=== PATIENT | female | born 1985 | race Caucasian/White ===

== ENCOUNTER 2016-05-24 17:11 | Emergency (ER) | payer OTHER ==
[2016-05-24 17:25] VITALS: BP 148/99; PULSE 92; TEMP 98; BMI 31.3
--- NOTE | 2016-05-24 17:32 | PDOC ---
Suture Removal/Wound Check HPI - History of Present Illness Chief Complaint: Suture/Staple Removal(Here) Stated Complaint: STITCHES REMOVAL Time Seen by Provider: 05/24/16 17:30 History Source: Yes: Patient Exam Limitations: Yes: No Limitations Treated at: [facility] Date of Last ED visit: 04/30/16 Past History - Past Medical History Allergies/Adverse Reactions: Allergies No Known Allergies Allergy (Verified 05/24/16 17:25) Home Medications: Ambulatory Orders Gabapentin 600 mg PO TID 04/23/14 Pregabalin [Lyrica -] 100 mg PO BID 04/23/14 Cyclobenzaprine HCl [Flexeril -] 10 mg PO HS 11/26/15 Methocarbamol [Robaxin -] 500 mg PO BID 11/26/15 Oxycodone HCl/Acetaminophen [Percocet 10-325 mg Tablet] 1 each PO BID PRN Ibuprofen [Motrin -] 600 mg PO TID PRN #28 tablet 04/30/16 Oxycodone HCl/Acetaminophen [Percocet 5-325 mg Tablet] 1 tab PO Q6H #4 tablet MDD 4 04/30/16 Surgical History: Yes: , Other - Reproductive History LMP: 05/20/12 - Immunization History Immunizations Up to Date: Yes Tetanus Status: Less than 5 years - Social History Smoking History: No Smoking Status: Current every day smoker Number of Ciarettes Per Day: 10 Alcohol Use: none Drug Use: none Medical Decision Making - Medical Decision Making A/P: 30 y/o female seen here on 04/30 for head laceration, here for suture removal, 24 days after sutures placed into scalp. Pt denies fever, discharge from wound. 4 sutures removed from top posterior scalp. Laceration well healed without any dehiscence. Pt given suture removal instructions. *DC/Admit/Observation/Transfer Diagnosis at time of Disposition: Visit for suture removal - Discharge Dispostion Disposition: HOME Condition at time of disposition: Good - Patient Instructions Printed Discharge Instructions: DI for Suture Removal
== END 2016-05-24 17:44 | disposition home or self-care (01) ==
LOC: JER 17:11 → JERFT 17:11
DX: Z48.02 Encounter for removal of sutures (principal)
CPT/HCPCS: 99281-25

== ENCOUNTER 2016-10-04 22:36 | Emergency (ER) | payer OTHER ==
[2016-10-04 22:42] VITALS: BP 150/89; PULSE 93; TEMP 98.3; BMI 34.4
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
[2016-10-04 23:58] LABS: BASOPHIL 0.6 % (0-2.0); MCH 31.8 pg (25.7-33.7); MCHC 34.1 g/dl (32.0-36.0); MEAN CELL VOLUME 93.4 fl (80-96); MEAN PLT VOLUME 9.7 fl (7.5-11.1); NEUTROPHILS 61.3 % (42.8-82.8); PLATELET COUNT 221 K/MM3 (134-434); RDW 12.1 % (11.6-15.6)
[2016-10-04 23:59] LABS: URINE APPEARANCE CLEAR; URINE BILIRUBIN NEGATIVE (NEGATIVE); URINE COLOR YELLOW; URINE GLUCOSE (UA) NEGATIVE (NEGATIVE); URINE KETONE NEGATIVE (NEGATIVE); URINE LEUK ESTERASE NEGATIVE (NEGATIVE); URINE NITRITE NEGATIVE (NEGATIVE); URINE PROTEIN NEGATIVE (NEGATIVE); URINE UROBILINOGEN NEGATIVE E.U./dl (0.2-1.0)
[2016-10-05 00:05] LABS: URINE BLOOD 3+ (NEGATIVE)
[2016-10-05 00:31] LABS: ALBUMIN 3.5 g/dl (3.4-5.0); ANION GAP 11 (8-16); BILIRUBIN,TOTAL 0.3 mg/dL (0.2-1.0); CALCIUM 8.5 mg/dL (8.5-10.1); CO2 24 mmol/L (21-32); CREATININE 0.7 mg/dL (0.55-1.02); GLUCOSE,RANDOM 95 mg/dL (74-106); SGOT/AST 25 U/L (15-37); SGPT/ALT 33 U/L (12-78); TOT PROT 7.1 g/dl (6.4-8.2)
[2016-10-05 00:32] LABS: ALK PHOS 66 U/L (45-117)
[2016-10-05 00:44] LABS: URINE BACTERIA RARE /hpf (NONE SEEN); URINE MUCUS RARE; URINE RBC 1 /hpf (0-3); URINE WBC 1 /hpf (3-5)
--- NOTE | 2016-10-05 01:15 | PDOC ---
*Physical Exam - Vital Signs Last Vital Signs Temp Pulse Resp BP Pulse Ox 98.3 F 93 H 18 150/89 97 10/04/16 22:37 10/04/16 22:37 10/04/16 22:37 10/04/16 22:37 10/04/16 22:37 ED Treatment Course - LABORATORY CBC & Chemistry Diagram: 10/04/16 23:41 10/04/16 23:41 - ADDITIONAL ORDERS Additional order review: Laboratory Results 10/04/16 10/04/16 10/04/16 23:41 23:41 23:41 Sodium 141 Potassium 4.0 Chloride 106 Carbon Dioxide 24 Anion Gap 11 BUN 15 D Creatinine 0.7 D Creat Clearance w eGFR > 60 Random Glucose 95 D Calcium 8.5 Total Bilirubin 0.3 D AST 25 D ALT 33 Alkaline Phosphatase 66 D Total Protein 7.1 Albumin 3.5 D Beta HCG, Quant < 1.0 Urine Color Yellow Urine Appearance Clear Urine pH 6.0 Urine Protein Negative Urine Glucose (UA) Negative Urine Ketones Negative Urine Blood 3+ H Urine Nitrite Negative Urine Bilirubin Negative Urine Urobilinogen Negative Ur Leukocyte Esterase Negative Urine RBC 1 Urine WBC 1 Ur Epithelial Cells Rare Urine Bacteria Rare Urine Mucus Rare 10/04/16 23:41 RBC 4.03 MCV 93.4 MCHC 34.1 RDW 12.1 MPV 9.7 Neutrophils % 61.3 D Lymphocytes % 28.2 D Monocytes % 6.9 D Eosinophils % 3.0 D Basophils % 0.6 Medical Decision Making - Medical Decision Making 10/05/16 01:14 Pt seen primarily by ELLYN Smith Briefly, she is a 31 yo F presenting to the ER with a concern about due to suprapubic pain Labs: Laboratory Tests 10/04/16 10/04/16 10/04/16 23:41 23:41 23:41 WBC 6.0 D Hgb 12.8 D Hct 37.6 D Plt Count 221 D BUN 15 D Creatinine 0.7 D Beta HCG, Quant Urine Blood 3+ H Urine Nitrite Negative Ur Leukocyte Esterase Negative 10/04/16 23:41 WBC Hgb Hct Plt Count BUN Creatinine Beta HCG, Quant < 1.0 Urine Blood Urine Nitrite Ur Leukocyte Esterase U/S pending I agree with her plan to discharge to home if US negative 10/05/16 01:15 *DC/Admit/Observation/Transfer Diagnosis at time of Disposition: UTI (urinary tract infection), Vaginal spotting - Discharge Dispostion Disposition: HOME Condition at time of disposition: Stable - Prescriptions Prescriptions: Nitrofurantoin Monohyd/M-Cryst [Macrobid -] 100 mg PO BID #14 capsule - Referrals Referrals: Dominic Zuniga MD [Staff Physician] - - Patient Instructions Printed Discharge Instructions: DI for Urinary Tract Infection (UTI) Additional Instructions: As per our conversation, you'll urine analysis does not show a urinary tract infection but your symptoms exhibited someone who is going through a urinary tract infection. You have been started on antibiotics for urinary tract infection. 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
[2016-10-05] MEDS ORDERED: NITROFURANTOIN MACROCRYSTAL 50 MG CAPSULE (FP) PO SCH (02:30)
[2016-10-05] MEDS ORDERED: NITROFURANTOIN MACROCRYSTAL 50 MG CAPSULE (FP) ONE (02:31)
== END 2016-10-05 03:00 | disposition home or self-care (01) ==
LOC: JER 22:36
DX: N30.00 Acute cystitis without hematuria (principal); N93.8 Other specified abnormal uterine and vaginal bleeding; J45.909 Unspecified asthma, uncomplicated; F41.9 Anxiety disorder, unspecified; D57.1 Sickle-cell disease without crisis
CPT/HCPCS: 36415; 76830-TC; 80053; 81003; 81015; 84702; 85025; 87086; 99281-25

== ENCOUNTER 2018-01-01 18:20 | Emergency (ER) | payer OTHER ==
[2018-01-01 18:37] VITALS: BP 129/77; PULSE 89; TEMP 98.5; BMI 39.1
[2018-01-01] MEDS ORDERED: KETOROLAC TROMETHAMINE 60 MG/2 ML VIAL IM ONE (19:11)
[2018-01-01] MEDS ORDERED: KETOROLAC TROMETHAMINE 60 MG/2 ML VIAL ONE (19:14)
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
== END 2018-01-01 21:42 | disposition home or self-care (01) ==
LOC: JERFT 18:20
PROC: 2W28X4Z Dressing of Right Upper Extremity using Bandage (ICD-10-PCS; principal; 2018-01-01)
PROC: 3E0233Z Introduction of Anti-inflammatory into Muscle, Percutaneous Approach (ICD-10-PCS; 2018-01-01)
DX: S63.621A Sprain of interphalangeal joint of right thumb, initial encounter (principal); W50.1XXA Accidental kick by another person, initial encounter; Y93.89 Activity, other specified; Y92.038 Other place in apartment as the place of occurrence of the external cause; Y99.8 Other external cause status; T23.271A Burn of second degree of right wrist, initial encounter; T31.0 Burns involving less than 10% of body surface; T79.8XXA Other early complications of trauma, initial encounter; X11.8XXA Contact with other hot tap-water, initial encounter
CPT/HCPCS: 16020; 73110-TC-RT-FY; 73130-TC-RT-FY; 96372; 99281-25

== ENCOUNTER 2018-04-20 17:36 | Emergency (ER) | payer OTHER ==
[2018-04-20 17:45] VITALS: BP 126/74; PULSE 87; TEMP 97.8; BMI 39.1
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
[2018-04-20] MEDS ORDERED: KETOROLAC TROMETHAMINE 60 MG/2 ML VIAL IM ONE (18:31)
[2018-04-20] MEDS ORDERED: KETOROLAC TROMETHAMINE 60 MG/2 ML VIAL ONE (18:32)
== END 2018-04-20 18:46 | disposition home or self-care (01) ==
LOC: JERFT 17:36
PROC: 3E0233Z Introduction of Anti-inflammatory into Muscle, Percutaneous Approach (ICD-10-PCS; principal; 2018-04-20)
DX: S13.4XXA Sprain of ligaments of cervical spine, initial encounter (principal); V43.52XA Car driver injured in collision with other type car in traffic accident, initial encounter; Y93.89 Activity, other specified; Y92.410 Unspecified street and highway as the place of occurrence of the external cause
CPT/HCPCS: 84703; 99281-25

== ENCOUNTER 2018-04-30 14:38 | Emergency (ER) | payer OTHER ==
[2018-04-30 14:50] VITALS: BP 123/79; PULSE 97; TEMP 98.3; BMI 37.5
--- NOTE | 2018-04-30 14:53 | PDOC ---
Rapid Medical Evaluation Time Seen by Provider: 04/30/18 14:49 Medical Evaluation: Allergies Allergy/AdvReac Type Severity Reaction Status Date / Time No Known Allergies Allergy Verified 01/01/18 18:33 04/30/18 14:49 The patient presents with a chief complaint of: rt sided neck lump x 1 week, no drainage , temp 101.2, dizzy, headache I have performed a brief in-person evaluation of this patient; noted erthematous rt cervical small abscess with nondraining white center, surrounding skin intact Pertinent physical exam findings: ambulatory, in no respiratory distress, VSS I have ordered the following: none The patient will proceed to the ED for further evaluation. Discharge Disposition - Diagnosis Abscess - Referrals - Patient Instructions - Post Discharge Activity
[2018-04-30] MEDS ORDERED: IBUPROFEN 400 MG TABLET (FP) PO ONE ×2 (16:09→16:10)
--- NOTE | 2018-04-30 17:15 | PDOC ---
History of Present Illness - General Chief Complaint: Pain, Acute Stated Complaint: HEADACHE Time Seen by Provider: 04/30/18 14:49 History Source: Patient Exam Limitations: No Limitations Past History - Past Medical History Allergies/Adverse Reactions: Allergies Allergy/AdvReac Type Severity Reaction Status Date / Time No Known Allergies Allergy Verified 04/30/18 14:51 Home Medications: Ambulatory Orders Cyclobenzaprine HCl [Flexeril -] 10 mg PO TID 04/30/18 Meloxicam [Mobic] 7.5 mg PO ASDIR 04/30/18 Pregabalin [Lyrica -] 100 mg PO TID 04/30/18 Anemia: No Asthma: Yes Cancer: No Cardiac Disorders: No COPD: No Diabetes: No HTN: No Psychiatric Problems: Yes (ANXIETY, PANIC ATTACKS.) Seizures: No Thyroid Disease: No - Surgical History Abdominal Surgery: Yes Cholecystectomy: No Lung Surgery: No - Immunization History Immunization Up to Date: Yes - Suicide/Smoking/Psychosocial Hx Smoking Status: No Smoking History: Never smoked Have you smoked in the past 12 months: No Number of Cigarettes Smoked Daily: 10 If you are a former smoker, when did you quit?: 1st Trimester Information on smoking cessation initiated: No 'Breaking Loose' booklet given: 04/29/16 Hx Alcohol Use: No Drug/Substance Use Hx: No Substance Use Type: None Hx Substance Use Treatment: No *Physical Exam - Vital Signs Last Vital Signs Temp Pulse Resp BP Pulse Ox 98.3 F 97 H 20 123/79 99 04/30/18 14:47 04/30/18 14:47 04/30/18 14:47 04/30/18 14:47 04/30/18 14:47 - Physical Exam General Appearance: No: Apparent Distress HEENT: positive: Normal ENT Inspection Neck: positive: Other (around 3 x 3 cm area of induration along R lateral neck with center of pustule noted, slight fluctuance noted to center, no draining pus , mild redness around site) Moderate Sedation - Procedure Monitoring Vital Signs: Procedure Monitoring Vital Signs Temperature 98.3 F 04/30/18 14:47 Pulse Rate 97 H 04/30/18 14:47 Respiratory Rate 20 04/30/18 14:47 Blood Pressure 123/79 04/30/18 14:47 O2 Sat by Pulse Oximetry (%) 99 04/30/18 14:47 Procedures - Incision and Drainage I&D Site: Right: Other (R lateral surface of neck) Betadine cleansed: Yes Anesthesia: 1% Lidocaine Blade Size: 15 Attempts: 1 Iodinated Packin/4 in ED Treatment Course - Medications Given in the ED: ED Medications Discontinued Medications Generic Name Dose Route Start Last Admin Trade Name Brenda PRN Reason Stop Dose Admin Ibuprofen 800 mg 04/30/18 16:09 04/30/18 16:11 Motrin - PO 04/30/18 16:10 800 mg ONCE ONE Administration Medical Decision Making - Medical Decision Making 32 y/o F hx of lupus, sickle cell trait presents with lump along R side of neck x 1 week, worsening last night. Had fever last night, but unable to recall exact number. Took Motrin last night. Denies any possible bites to site. Bedside ultrasound showed small pocket of fluid (superficial) Had small amount of pus come out on injection of lidocaine I&D done with mostly bloody discharge Site was packed Will have patient return in 2 days for wound recheck 04/30/18 17:12 *DC/Admit/Observation/Transfer Diagnosis at time of Disposition: Abscess - Discharge Dispostion Disposition: HOME Condition at time of disposition: Good Decision to Admit order: No - Referrals - Patient Instructions Printed Discharge Instructions: DI for Skin Abscess Additional Instructions: Thank you for choosing [facility]. It was a pleasure taking care of you. You may take Tylenol 650 mg or Motrin 600 mg every 4 hours by mouth as needed for mild to moderate pain. Take Motrin with food. Do not take more than 4000 mg of Tylenol in 1 day. Apply warm compresses to allow any further drainage Return to ED in 2 days for wound recheck Return to the Emergency Department if your symptoms worsen or persist or have other concerning symptoms. - Post Discharge Activity
== END 2018-04-30 17:27 | disposition home or self-care (01) ==
LOC: JERFT 14:38
PROC: 0J940ZZ Drainage of Right Neck Subcutaneous Tissue and Fascia, Open Approach (ICD-10-PCS; principal; 2018-04-30)
DX: L02.11 Cutaneous abscess of neck (principal)
CPT/HCPCS: 99281-25

== ENCOUNTER 2018-08-25 13:12 | Inpatient (IN) | payer OTHER ==
--- NOTE | 2018-08-25 13:29 | PDOC ---
History of Present Illness - General Chief Complaint: Chest Pain Stated Complaint: CHEST PAIN Time Seen by Provider: 08/25/18 13:29 - History of Present Illness Initial Comments: 33 year old with PMH of Lupus, "pinched nerve" (assumed radiculopathy), sickle cell trait, anxiety, and asthma presenting with sharp central chest pain that started one hour before presentation to our ED. Denies ever having this chest arceo in the past. describes the pain as sudden onset, sharp and central, which radiates to the left arm and down to her hand. She did have an episode of vomiting when the chest pain first came on. She also admits to some mild sore throat. It has been constant since onset with occasional minor improvement but never complete relief. She does have a mild burning sensation in her throat. Denies SOB, fevers, chills, diarrhea, abdominal pain, headache, syncope, cough, or other symptoms. No PCP because of insurance issues. She has a chronic pain physician who treats her with lyrica. 08/25/18 13:30 Past History - Past Medical History Allergies/Adverse Reactions: Allergies Allergy/AdvReac Type Severity Reaction Status Date / Time No Known Allergies Allergy Verified 08/25/18 13:25 Home Medications: Ambulatory Orders Cyclobenzaprine HCl [Flexeril -] 10 mg PO TID 04/30/18 Meloxicam [Mobic] 7.5 mg PO ASDIR 04/30/18 Pregabalin [Lyrica -] 100 mg PO TID 04/30/18 Anemia: No Asthma: Yes Cancer: No Cardiac Disorders: No COPD: No Diabetes: No HTN: No Psychiatric Problems: Yes (ANXIETY, PANIC ATTACKS.) Seizures: No Thyroid Disease: No Other medical history: SICKLE CELL TRAIT, LUPUS - Surgical History Abdominal Surgery: Yes Cholecystectomy: No Lung Surgery: No - Immunization History Immunization Up to Date: Yes - Suicide/Smoking/Psychosocial Hx Smoking Status: No Smoking History: Current every day smoker Have you smoked in the past 12 months: No Number of Cigarettes Smoked Daily: 10 If you are a former smoker, when did you quit?: 1st Trimester Information on smoking cessation initiated: No 'Breaking Loose' booklet given: 04/29/16 Hx Alcohol Use: No Drug/Substance Use Hx: No Substance Use Type: None Hx Substance Use Treatment: No Review of Systems - Review of Systems Constitutional: No: Chills, Diaphoresis, Fever Respiratory: No: Cough, Shortness of Breath Cardiac (ROS): Yes: Chest Pain. No: Edema, Irregular Heart Rate ABD/GI: Yes: Nausea, Vomiting. No: Diarrhea : No: Dysuria, Discharge Musculoskeletal: No: Back Pain, Joint Pain Integumentary: Yes: Dryness, Erythema, Lesions. No: Bruising, Flushing Neurological: Yes: Paresthesia. No: Headache, Numbness Psychiatric: Yes: Anxiety. No: Depression Hematologic/Lymphatic: No: Anemia, Blood Clots, Easy Bleeding *Physical Exam - Vital Signs Last Vital Signs Temp Pulse Resp BP Pulse Ox 97.4 F L 63 18 147/65 99 08/25/18 13:25 08/25/18 13:25 08/25/18 13:25 08/25/18 13:25 08/25/18 13:25 - Physical Exam General Appearance: Yes: Nourished, Appropriately Dressed. No: Apparent Distress HEENT: positive: EOMI, JULIET, Normal ENT Inspection, Normal Voice Neck: positive: Trachea midline, Normal Thyroid, Supple. negative: Tender, Rigid Respiratory/Chest: positive: Lungs Clear, Normal Breath Sounds. negative: Chest Tender, Respiratory Distress Heart Score/ECG Review - History History: Slightly suspicious - Electrocardiogram EKG: Normal - Age Age: </= 45 - Risk Factors Risk Factors Heart Score: Yes Smoking History, Yes Positive family hx of cardiac disease, Yes Hx Obesity Based on the list above the patient has:: >/=3 risk factors or Hx atherosclerotic disease - Troponin Troponin: </= normal limit - Score Heart Score - Total: 2 ED Treatment Course - LABORATORY CBC & Chemistry Diagram: 08/25/18 14:24 08/25/18 14:24 Medical Decision Making - Medical Decision Making 33 year old female with sudden onset sharp central chest pain with radiation down her left arm to her hand. PE was highest on our differnetial given history of SLE. CTA ruled this ut and bilateral dopplers also ruled out DVT. Very low risk (HS 2) for ACS first troponin negative. Symptoms better after Pepcid, Maalox, and toradol. EKG demonstrating rate 72, AL 208, QRS 88, QTc 431, an normal axis without ST elevations or TWI. Repeat EKG unchanged. However, repeat troponin elevated to 0.[address] [facility] and we discussed the patient with Dr. Dee who recommended holding AC unles patient's chest pain returned. Final provisional diagnosis is most likely NSTEMI but the subtype is currently unspecifiable. 08/25/18 18:03 *DC/Admit/Observation/Transfer Diagnosis at time of Disposition: Troponin level elevated Chest pain Qualifiers: Chest pain type: unspecified Qualified Code(s): R07.9 - Chest pain, unspecified - Discharge Dispostion Disposition: HOME Condition at time of disposition: Stable Decision to Admit order: Yes - Referrals - Patient Instructions - Post Discharge Activity
[2018-08-25] MEDS ORDERED: FAMOTIDINE 20 MG/50 ML IVPB 20 MG/50 ML MG IVPB ONE ×2 (14:03→14:10)
[2018-08-25] MEDS ORDERED: SODIUM CHLORIDE 0.9% 500 ML INFUS.BAG IV ONE (14:03)
[2018-08-25] MEDS ORDERED: ONDANSETRON 4 MG/2 ML VIAL IVPUSH ONE (14:03)
[2018-08-25] MEDS ORDERED: MAG HYDROX/AL HYDROX/SIMETH 30 ML UNIT-DOSE CUP PO ONE (14:03)
[2018-08-25] MEDS ORDERED: ASPIRIN 81 MG CHEWABLE TABLETS PO ONE (14:03)
[2018-08-25] MEDS ORDERED: ASPIRIN 325 MG TABLET ONE (14:09)
[2018-08-25] MEDS ORDERED: ONDANSETRON 4 MG/2 ML VIAL ONE (14:10)
[2018-08-25] MEDS ORDERED: MAG HYDROX/AL HYDROX/SIMETH 30 ML UNIT-DOSE CUP ONE (14:10)
--- NOTE | 2018-08-25 14:28 | EKG ---
Test Reason : Blood Pressure : / mmHG Vent. Rate : 072 BPM Atrial Rate : 072 BPM P-R Int : 208 ms QRS Dur : 088 ms QT Int : 394 ms P-R-T Axes : 054 033 037 degrees QTc Int : 431 ms NORMAL SINUS RHYTHM POSSIBLE LEFT ATRIAL ENLARGEMENT BORDERLINE ECG NO PREVIOUS ECGS AVAILABLE Confirmed by SHARON ROSS, MERT ([id number]) on 08/25/2018 2:28:12 PM Referred By: Confirmed By:MERT HERRERA MD
[2018-08-25 14:34] LABS: BASO % 1.1 % (0-2.0); EOS % 1.6 % (0-4.5); HEMATOCRIT 37.4 % (32.4-45.2); HEMOGLOBIN 13.2 GM/dL (10.7-15.3); LYMPH % 21.6 % (8-40); MCHC 35.3 g/dl (32.0-36.0); MEAN CELL VOLUME 93.6 fl (80-96); MEAN PLT VOLUME 9.9 fl (7.5-11.1); MONO % 7.3 % (3.8-10.2); NEUT % 68.4 % (42.8-82.8); PLATELET COUNT 261 K/MM3 (134-434); RBC 3.99 M/mm3 (3.60-5.2); RDW 12.5 % (11.6-15.6); WHITE BLOOD COUNT 7.6 K/mm3 (4.0-10.0)
[2018-08-25 14:57] LABS: INR 0.92 (0.83-1.09); PROTHROMBIN TIME (PATIENT) 10.9 SEC (9.7-13.0)
[2018-08-25 15:09] LABS: ALBUMIN 3.2 g/dl (3.4-5.0); ALK PHOS 70 U/L (45-117); ANION GAP 5 MMOL/L (8-16); BILIRUBIN,TOTAL 0.4 mg/dL (0.2-1); BLOOD UREA NITROGEN 8 mg/dL (7-18); CHLORIDE 106 mmol/L (98-107); CO2 28 mmol/L (21-32); CREATININE 0.6 mg/dL (0.55-1.3); GLUCOSE,RANDOM 85 mg/dL (74-106); POTASSIUM 4.2 mmol/L (3.5-5.1); SGOT/AST 24 U/L (15-37); SGPT/ALT 34 U/L (13-61); SODIUM 138 mmol/L (136-145)
[2018-08-25 15:12] LABS: EPI CELLS 7.2 /HPF (0-5/HPF); HCG,QUALITATIVE URINE Negative; PH,URINE 5.5 (5.0-8.0); URINE APPEARANCE CLEAR; URINE BACTERIA 194.9 /hpf (NEGATIVE); URINE BILIRUBIN NEGATIVE (NEGATIVE); URINE CASTS 4 /lpf (0-8); URINE COLOR YELLOW; URINE GLUCOSE (UA) NEGATIVE (NEGATIVE); URINE KETONE NEGATIVE (NEGATIVE); URINE LEUK ESTERASE NEGATIVE (NEGATIVE); URINE NITRITE NEGATIVE (NEGATIVE); URINE PROTEIN NEGATIVE (NEGATIVE); URINE RBC 6 /hpf (0-4); URINE UROBILINOGEN 0.2 mg/dL (0.2-1.0); URINE WBC 6 /hpf (0-5)
--- NOTE | 2018-08-25 16:09 | PDOC ---
Documentation entered by Magaly Pascual SCRIBE, acting as scribe for Jack Obrien MD. Jack Obrien MD: This documentation has been prepared by the Samara zimmerman Sammi, SCRIBE, under my direction and personally reviewed by me in its entirety. I confirm that the documentation accurately reflects all work, treatment, procedures, and medical decision making performed by me. Attending Attestation - HPI HPI: 08/25/18 14:45 Patient is a 33 year old female, who presents with 1 hour of sharp, constant chest pain radiating to left upper extremity. Pt notes 1 episode of vomiting and sore throat. Denies SOB, fevers, chills, and other complaints. - Physicial Exam PE: 08/25/18 16:06 Patient is awake and alert, obese, in mild distress Normocephalic and atraumatic PERRLA, EOMI No JVD CTA; + reproducible left anterior chest wall and parasternal chest wall tenderness to palpation RRR No lower extremity edema - Medical Decision Making 08/25/18 16:08 33-year-old female with history of SLE, sickle cell trait presents with atraumatic chest discomfort. Differential diagnoses includes pneumothorax versus PE versus ACS. Patient is well score is noted to be 3 and I will obtain CTA of chest followed by lower extremity Doppler ultrasound to rule out PE/DVT. Heart score is noted to be 2. Will obtain serial cardiac enzymes. If no evidence of PE is noted and serial cardiac enzymes within normal limit, we'll discharge with outpatient follow-up.
[2018-08-25] MEDS ORDERED: KETOROLAC TROMETHAMINE 15 MG/ML VIAL IVPUSH ONE (17:54)
[2018-08-25] MEDS ORDERED: KETOROLAC TROMETHAMINE 15 MG/ML VIAL ONE (18:16)
--- NOTE | 2018-08-25 20:56 | HP ---
Admitting History and Physical - Primary Care Physician PCP: Matthew Land - Admission History of Present Illness: 33 year old with PMH of Lupus, "pinched nerve" (assumed radiculopathy), sickle cell trait, anxiety, and asthma presenting with sharp central chest pain that started one hour before presentation to our ED. Denies ever having this chest arceo in the past. describes the pain as sudden onset, sharp and central, which radiates to the left arm and down to her hand. She did have an episode of vomiting when the chest pain first came on. She also admits to some mild sore throat. It has been constant since onset with occasional minor improvement but never complete relief. She does have a mild burning sensation in her throat. Denies SOB, fevers, chills, diarrhea, abdominal pain, headache, syncope, cough, or other symptoms. No PCP because of insurance issues. She has a chronic pain physician who treats her with lyrica. - Past Medical History Pulmonary: Yes: Asthma ...LMP: 04/14/14 - Smoking History Smoking history: Current every day smoker Have you smoked in the past 12 months: No Aproximately how many cigarettes per day: 10 If you are a former smoker, when did you quit?: 1st Trimester - Alcohol/Substance Use Hx Alcohol Use: No Home Medications - Allergies Allergies/Adverse Reactions: Allergies Allergy/AdvReac Type Severity Reaction Status Date / Time No Known Allergies Allergy Verified 08/25/18 13:25 - Home Medications Home Medications: Ambulatory Orders Cyclobenzaprine HCl [Flexeril -] 10 mg PO TID 04/30/18 Meloxicam [Mobic] 7.5 mg PO ASDIR 04/30/18 Pregabalin [Lyrica -] 100 mg PO TID 04/30/18 Physical Examination Vital Signs: Vital Signs Temperature 97.9 F 08/25/18 20:26 Pulse Rate 74 08/25/18 20:26 Respiratory Rate 20 08/25/18 20:26 Blood Pressure 122/70 08/25/18 20:26 O2 Sat by Pulse Oximetry (%) 99 08/25/18 16:15 Constitutional: Yes: No Distress HENT: Yes: Atraumatic Neck: Yes: Supple Cardiovascular: Yes: Regular Rate and Rhythm Respiratory: Yes: CTA Bilaterally Gastrointestinal: Yes: Normal Bowel Sounds Musculoskeletal: Yes: Other (tender at costochondral junction) Extremities: Yes: WNL Neurological: Yes: Alert, Oriented Labs: CBC, BMP 08/25/18 14:24 08/25/18 14:24 Imaging - Results Cat Scan: Report Reviewed Ultrasound: Report Reviewed Problem List - Problems (1) Chest pain Assessment/Plan: reproducible also as neck issue Code(s): R07.9 - CHEST PAIN, UNSPECIFIED Qualifiers: Chest pain type: unspecified Qualified Code(s): R07.9 - Chest pain, unspecified (2) Troponin level elevated Assessment/Plan: will fu cardiology consult tele monitoring Code(s): R74.8 - ABNORMAL LEVELS OF OTHER SERUM ENZYMES (3) Chronic pain Assessment/Plan: chronic neck pain...supposed to go for mri Code(s): G89.29 - OTHER CHRONIC PAIN Assessment/Plan Laboratory Tests 08/25/18 08/25/18 08/25/18 14:24 14:24 14:24 WBC 7.6 RBC 3.99 Hgb 13.2 Hct 37.4 MCV 93.6 MCH 33.0 MCHC 35.3 RDW 12.5 Plt Count 261 MPV 9.9 Absolute Neuts (auto) 5.2 Neutrophils % 68.4 Lymphocytes % 21.6 D Monocytes % 7.3 Eosinophils % 1.6 Basophils % 1.1 Nucleated RBC % 0 PT with INR 10.90 INR 0.92 Sodium 138 Potassium 4.2 Chloride 106 Carbon Dioxide 28 Anion Gap 5 L BUN 8 Creatinine 0.6 Creat Clearance w eGFR 114.44 Random Glucose 85 Calcium 9.0 Total Bilirubin 0.4 AST 24 ALT 34 Alkaline Phosphatase 70 Creatine Kinase Troponin I 0.03 Total Protein 7.0 Albumin 3.2 L Urine Color Urine Appearance Urine pH Ur Specific [place] Urine Protein Urine Glucose (UA) Urine Ketones Urine Blood Urine Nitrite Urine Bilirubin Urine Urobilinogen Ur Leukocyte Esterase Urine WBC (Auto) Urine RBC (Auto) Urine Casts (Auto) U Epithel Cells (Auto) Urine Bacteria (Auto) Urine HCG, Qual 08/25/18 08/25/18 14:52 18:21 WBC RBC Hgb Hct MCV MCH MCHC RDW Plt Count MPV Absolute Neuts (auto) Neutrophils % Lymphocytes % Monocytes % Eosinophils % Basophils % Nucleated RBC % PT with INR INR Sodium Potassium Chloride Carbon Dioxide Anion Gap BUN Creatinine Creat Clearance w eGFR Random Glucose Calcium Total Bilirubin AST ALT Alkaline Phosphatase Creatine Kinase 116 Troponin I 0.41 H Total Protein Albumin Urine Color Yellow Urine Appearance Clear Urine pH 5.5 Ur Specific [place] 1.013 Urine Protein Negative Urine Glucose (UA) Negative Urine Ketones Negative Urine Blood 2+ H Urine Nitrite Negative Urine Bilirubin Negative Urine Urobilinogen 0.2 Ur Leukocyte Esterase Negative Urine WBC (Auto) 6 Urine RBC (Auto) 6 Urine Casts (Auto) 4 U Epithel Cells (Auto) 7.2 Urine Bacteria (Auto) 194.9 Urine HCG, Qual Negative
[2018-08-25] MEDS: PREGABALIN 100 MG CAPSULE PO SCH (22:11)
[2018-08-25] MEDS ORDERED: oxyCODONE HCL 5 MG TABLET PO PRN (23:00)
[2018-08-25] MEDS ORDERED: diphenhydrAMINE HCL 25 MG CAPSULE (FP) PO PRN (23:00)
[2018-08-25] MEDS ORDERED: ACETAMINOPHEN 325 MG TABLET (FP) PO PRN ×2 (23:00→23:01)
[2018-08-25] MEDS: metoPROLOL SUCCINATE 25 MG TAB.SR.24H (FP) PO SCH (23:09)
[2018-08-25 23:42] VITALS: BMI 40.4
[2018-08-26] MEDS: PREGABALIN 100 MG CAPSULE PO SCH (06:18)
[2018-08-26 06:49] LABS: BASO % 0.4 % (0-2.0); EOS % 2.6 % (0-4.5); HEMATOCRIT 37.2 % (32.4-45.2); HEMOGLOBIN 12.7 GM/dL (10.7-15.3); LYMPH % 35.2 % (8-40); MCH 32.2 pg (25.7-33.7); MCHC 34.1 g/dl (32.0-36.0); MEAN CELL VOLUME 94.3 fl (80-96); MEAN PLT VOLUME 10.3 fl (7.5-11.1); MONO % 8.5 % (3.8-10.2); NEUT % 53.3 % (42.8-82.8); PLATELET COUNT 242 K/MM3 (134-434); RBC 3.94 M/mm3 (3.60-5.2); RDW 12.4 % (11.6-15.6); WHITE BLOOD COUNT 6.2 K/mm3 (4.0-10.0)
[2018-08-26 07:30] LABS: ALBUMIN 2.7 g/dl (3.4-5.0); ALK PHOS 66 U/L (45-117); ANION GAP 5 MMOL/L (8-16); BILIRUBIN,TOTAL 0.2 mg/dL (0.2-1); BLOOD UREA NITROGEN 12 mg/dL (7-18); CALCIUM 8.4 mg/dL (8.5-10.1); CHLORIDE 108 mmol/L (98-107); CO2 25 mmol/L (21-32); CREATININE 0.7 mg/dL (0.55-1.3); GLUCOSE,RANDOM 100 mg/dL (74-106); N-TERMINAL BNP 114.9 pg/ml (5-125); POTASSIUM 3.8 mmol/L (3.5-5.1); SGOT/AST 28 U/L (15-37); SGPT/ALT 34 U/L (13-61); SODIUM 139 mmol/L (136-145)
[2018-08-26 07:56] VITALS: BP 114/65; PULSE 67; TEMP 98
--- NOTE | 2018-08-26 09:04 | CON.CARD ---
Consult Consult Specialty:: Cardiology - History of Present Illness Chief Complaint: Chest pain History of Present Illness: 33 yo F with ho lupus (facial rash and joint pain). was placed on AC during but there is no prior ho thrombus. Developed sudden SSCP radiating to her left arm and face and lasted 45min and has resolved. No recent illness, fever. Has been CP free since admission. No dyspnea, edema, palpitations. now has left shoulder pain which is exacerbated by movement and is not new. ECG at presentation was normal. TP elevated over past several hours. Chest CT negative for dissection or PE. Does not report pericardial fluid. - History Source History Provided By: Patient Limitations to Obtaining History: No Limitations - Past Medical History Pulmonary: Yes: Asthma ...LMP: 04/14/14 Additional Medical History: lupus. 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 - Alcohol/Substance Use Hx Alcohol Use: No - Smoking History Smoking history: Current every day smoker Have you smoked in the past 12 months: No Aproximately how many cigarettes per day: 10 If you are a former smoker, when did you quit?: 1st Trimester Home Medications - Allergies Allergies/Adverse Reactions: Allergies Allergy/AdvReac Type Severity Reaction Status Date / Time No Known Allergies Allergy Verified 08/25/18 13:25 - Home Medications Home Medications: Ambulatory Orders Cyclobenzaprine HCl [Flexeril -] 10 mg PO TID 04/30/18 Meloxicam [Mobic] 7.5 mg PO ASDIR 04/30/18 Pregabalin [Lyrica -] 100 mg PO TID 04/30/18 Percocet 10-325 mg Tablet 10 mg PO PRN 08/25/18 Diphenhydramine HCl [Benadryl -] 25 mg PO PRN 08/26/18 Review of Systems - Review of Systems Constitutional: reports: Lethargy. denies: Chills, Diaphoresis, Fever Eyes: reports: No Symptoms HENT: reports: No Symptoms Neck: reports: No Symptoms Cardiovascular: reports: Chest Pain. denies: Edema, Shortness of Breath Respiratory: reports: No Symptoms Gastrointestinal: reports: No Symptoms Genitourinary: reports: No Symptoms Vital Signs: Vital Signs Temperature 98.0 F 08/26/18 07:54 Pulse Rate 67 08/26/18 07:54 Respiratory Rate 18 08/26/18 07:54 Blood Pressure 114/65 08/26/18 07:54 O2 Sat by Pulse Oximetry (%) 98 08/26/18 07:54 Constitutional: Yes: Well Nourished, No Distress Eyes: Yes: Conjunctiva Clear, EOM Intact HENT: Yes: Atraumatic, Normocephalic Neck: Yes: Supple, Trachea Midline Respiratory: Yes: Regular, CTA Bilaterally Gastrointestinal: Yes: Normal Bowel Sounds, Soft Cardiovascular: Yes: Regular Rate and Rhythm JVD: No Carotid Bruit: No PMI: Non-Displaced Heart Sounds: Yes: S1, S2 Murmur: No: Systolic Murmur, Diastolic Murmur - Other Data Labs, Other Data: CBC, BMP 08/26/18 05:30 08/26/18 05:30 INR, PTT INR 0.92 (0.83-1.09) 08/25/18 14:24 Troponin, BNP 08/25/18 08/25/18 08/25/18 14:24 18:21 21:20 Troponin I 0.03 0.41 H 0.83 H* B-Natriuretic Peptide 08/26/18 05:30 Troponin I 1.05 H* B-Natriuretic Peptide 114.9 Troponin, BNP 08/25/18 08/25/18 08/25/18 14:24 18:21 21:20 Troponin I 0.03 0.41 H 0.83 H* B-Natriuretic Peptide 08/26/18 05:30 Troponin I 1.05 H* B-Natriuretic Peptide 114.[address] t changes Problem List - Problems (1) Chest pain Code(s): R07.9 - CHEST PAIN, UNSPECIFIED Qualifiers: Chest pain type: unspecified Qualified Code(s): R07.9 - Chest pain, unspecified (2) Troponin level elevated Code(s): R74.8 - ABNORMAL LEVELS OF OTHER SERUM ENZYMES Assessment/Plan 33 F Lupus. New onset sudden CP wo ECG changes. Resolved now but with significant TP elevation. Possible NSTEMI vs pericarditis. Check ESR, CRP. Will need to exclude coronary obstruction either cath vs CTA. Echo Transfer to [facility] for further eval. DW primary team.
[2018-08-26] MEDS: metoPROLOL SUCCINATE 25 MG TAB.SR.24H (FP) PO SCH (09:07)
[2018-08-26] MEDS ORDERED: ASPIRIN 81 MG CHEWABLE TABLETS PO SCH (10:00)
--- NOTE | 2018-08-26 12:12 | EKG ---
Test Reason : Blood Pressure : / mmHG Vent. Rate : 063 BPM Atrial Rate : 063 BPM P-R Int : 234 ms QRS Dur : 090 ms QT Int : 412 ms P-R-T Axes : 036 041 040 degrees QTc Int : 421 ms SINUS RHYTHM WITH 1ST DEGREE A-V BLOCK OTHERWISE NORMAL ECG WHEN COMPARED WITH ECG OF 25-AUG-2018 18:36, NO SIGNIFICANT CHANGE WAS FOUND Confirmed by MICHELLE WILL MD ([id number]) on 08/26/2018 12:11:41 PM Referred By: CHRISSIE DELA CRUZ Confirmed By:MICHELLE WILL MD
--- NOTE | 2018-08-26 12:14 | EKG ---
Test Reason : Blood Pressure : / mmHG Vent. Rate : 061 BPM Atrial Rate : 061 BPM P-R Int : 230 ms QRS Dur : 096 ms QT Int : 394 ms P-R-T Axes : 037 045 036 degrees QTc Int : 396 ms SINUS RHYTHM WITH 1ST DEGREE A-V BLOCK OTHERWISE NORMAL ECG WHEN COMPARED WITH ECG OF 25-AUG-2018 13:22, NO SIGNIFICANT CHANGE WAS FOUND Confirmed by MICHELLE WILL MD ([id number]) on 08/26/2018 12:14:09 PM Referred By: Confirmed By:MICHELLE WILL MD
--- NOTE | 2018-08-26 12:55 | ECHO ---
Name: MARIA C MCGUIRE Exam:Adult Echocardiogram Study Date: 08/26/2018 09:32 AM Age: 33 yrs Reason For Study: chest pain Height: 67 in Weight: 248 lb BSA: 2.2 m2 MMode/2D Measurements & Calculations IVSd: 1.0 cm Ao root diam: 3.0 cm LVIDd: 5.1 cm LA dimension: 3.7 cm LVIDs: 2.9 cm LVPWd: 1.1 cm LVPWs: 2.2 cm EDV(Teich): 121.0 ml ESV(Teich): 32.9 ml LVOT diam: 2.0 cm Doppler Measurements & Calculations MV E max isaac: 84.9 cm/sec Ao V2 max: 122.9 cm/sec MV A max isaac: 59.2 cm/sec Ao max P.1 mmHg MV E/A: 1.4 Ao V2 mean: 85.3 cm/sec MV dec time: 0.17 sec Ao mean P.4 mmHg Ao V2 VTI: 28.5 cm CONRADO(I,D): 2.0 cm2 CONRADO(V,D): 1.8 cm2 LV V1 max P.2 mmHg SV(LVOT): 56.7 ml LV V1 mean P.2 mmHg LV V1 max: 73.5 cm/sec LV V1 mean: 51.7 cm/sec LV V1 VTI: 18.4 cm TR max isaac: 230.2 cm/sec PA V2 max: 112.7 cm/sec TR max P.2 mmHg PA max P.1 mmHg Med Peak E' Isaac: 7.6 cm/sec Med E/e': 11.2 Lat Peak E' Isaac: 11.2 cm/sec Lat E/e': 7.6 Procedure A complete two-dimensional transthoracic echocardiogram was performed (2D, M-mode, Doppler and color flow Doppler). The study was technically difficult with many images being suboptimal in quality. Left Ventricle The left ventricular size, thickness and function are normal. The left ventricular ejection fraction is normal. Ejection Fraction = 55-60%. No regional wall motion abnormalities noted. Right Ventricle The right ventricle is normal in size and function. Atria Normal left and right atrial size and function. Mitral Valve There is no mitral regurgitation noted. Tricuspid Valve There is trace tricuspid regurgitation. There was insufficient TR detected to calculate RV systolic p ressure. Aortic Valve No hemodynamically significant valvular aortic stenosis. No aortic regurgitation is present. Pulmonic Valve There is no pulmonic valvular regurgitation. Great Vessels The aortic root is normal size. Pericardium/Pleura There is no pericardial effusion. Interpretation Summary The study was technically difficult with many images being suboptimal in quality. The left ventricular size, thickness and function are normal The right ventricle is normal in size and function. There is trace tricuspid regurgitation. MD Ulises Rutledge 08/26/2018 12:54 PM
--- NOTE | 2018-08-26 18:26 | DS ---
Physical Examination Vital Signs: Vital Signs Temperature 98.0 F 08/26/18 07:54 Pulse Rate 67 08/26/18 07:54 Respiratory Rate 18 08/26/18 07:54 Blood Pressure 114/65 08/26/18 07:54 O2 Sat by Pulse Oximetry (%) 98 08/26/18 07:54 Constitutional: Yes: No Distress HENT: Yes: Atraumatic Neck: Yes: Supple Cardiovascular: Yes: Regular Rate and Rhythm Respiratory: Yes: CTA Bilaterally Gastrointestinal: Yes: Normal Bowel Sounds Extremities: Yes: WNL Edema: No Peripheral Pulses WNL: Yes Neurological: Yes: Alert, Oriented Labs: CBC, BMP 08/26/18 05:30 08/26/18 05:30 Discharge Summary Reason For Visit: ELEVATED TROPONIN LEVEL,CHEST PAIN,RULE OUT ACUTE Condition: Stable - Instructions Disposition: TRANSFER ACUTE CARE/OTHER HOSP - Home Medications Comprehensive Discharge Medication List: Ambulatory Orders Cyclobenzaprine HCl [Flexeril -] 10 mg PO TID 04/30/18 Meloxicam [Mobic] 7.5 mg PO ASDIR 04/30/18 Pregabalin [Lyrica -] 100 mg PO TID 04/30/18 Percocet 10-325 mg Tablet 10 mg PO PRN 08/25/18 Diphenhydramine HCl [Benadryl -] 25 mg PO PRN 08/26/18 transfer to tertiary care for possible cath d/w cardiology
== END 2018-08-26 10:57 | disposition short-term general hospital (02) | DRG 190 ==
LOC: JER 13:12 → INTOOBSV 19:23 → JERBED 19:23 → J4W 21:49 → OBSVTOIN 08-26 08:52
PROVIDERS: ADMIT Internal Medicine; ATTEND Internal Medicine
DX: I21.4 Non-ST elevation (NSTEMI) myocardial infarction (principal); I31.9 Disease of pericardium, unspecified; M32.9 Systemic lupus erythematosus, unspecified; Z68.41 Body mass index [BMI] 40.0-44.9, adult; E66.9 Obesity, unspecified; J45.909 Unspecified asthma, uncomplicated; F17.210 Nicotine dependence, cigarettes, uncomplicated; D57.3 Sickle-cell trait; F41.9 Anxiety disorder, unspecified; Z82.49 Family history of ischemic heart disease and other diseases of the circulatory system
CPT/HCPCS: 36415; 71275-TC; 80053; 81003; 82550; 83880; 84484; 84703; 85025; 85610; 85651; 86140; 93005; 93010; 93306-TC; 93970-TC; 99284-25; G0378

== ENCOUNTER 2018-12-03 15:20 | Emergency (ER) | payer OTHER ==
[2018-12-03 15:28] VITALS: TEMP 97.5; BMI 38.5
--- NOTE | 2018-12-03 15:33 | PDOC ---
Rapid Medical Evaluation Chief Complaint: Pain, Acute Time Seen by Provider: 12/03/18 15:29 Medical Evaluation: Allergies Allergy/AdvReac Type Severity Reaction Status Date / Time No Known Allergies Allergy Verified 12/03/18 15:28 Vital Signs Temp Pulse Resp BP Pulse Ox 97.5 F L 89 18 139/89 97 12/03/18 15:22 12/03/18 15:22 12/03/18 15:22 12/03/18 15:22 12/03/18 15:22 12/03/18 15:29 I have performed a brief in-person evaluation of this patient. The patient presents with a chief complaint of: R wrist pain, R flank pain w/ blood in urine. It feels like a lupus flare, but she has never had flank pain with her flares. H/o lupus. Denies fall. Pertinent physical exam findings: Pt in mild distress from pain. I have ordered the following: CBC, CMP, Esr, crp, UCG, UA, Ucx The patient will proceed to the ED for further evaluation. 12/03/18 15:32 Discharge Disposition - Diagnosis Hematuria Qualifiers: Hematuria type: unspecified type Qualified Code(s): R31.9 - Hematuria, unspecified - Referrals - Patient Instructions - Post Discharge Activity
[2018-12-03] MEDS ORDERED: SODIUM CHLORIDE 1,000 ML IV STA (16:42)
[2018-12-03] MEDS ORDERED: KETOROLAC TROMETHAMINE 30 MG/1 ML VIAL IVPUSH ONE (16:43)
[2018-12-03] MEDS ORDERED: KETOROLAC TROMETHAMINE 30 MG/1 ML VIAL ONE (17:36)
--- NOTE | 2018-12-03 17:40 | PDOC ---
*Physical Exam - Vital Signs Last Vital Signs Temp Pulse Resp BP Pulse Ox 97.5 F L 89 18 139/89 97 12/03/18 15:22 12/03/18 15:22 12/03/18 15:22 12/03/18 15:22 12/03/18 15:22 ED Treatment Course - LABORATORY CBC & Chemistry Diagram: 12/03/18 17:15 12/03/18 17:15 Medical Decision Making - Medical Decision Making 12/03/18 17:40 Case discussed with ELLYN Leal. Plan as per ELLYN. *DC/Admit/Observation/Transfer Diagnosis at time of Disposition: Hematuria Qualifiers: Hematuria type: unspecified type Qualified Code(s): R31.9 - Hematuria, unspecified - Referrals - Patient Instructions - Post Discharge Activity
[2018-12-03 17:46] LABS: BASO % 0.9 % (0-2.0); EOS % 3.5 % (0-4.5); HEMATOCRIT 37.7 % (32.4-45.2); HEMOGLOBIN 13.3 GM/dL (10.7-15.3); LYMPH % 26.4 % (8-40); MCH 32.1 pg (25.7-33.7); MCHC 35.2 g/dl (32.0-36.0); MEAN CELL VOLUME 91.3 fl (80-96); MEAN PLT VOLUME 10.4 fl (7.5-11.1); MONO % 7.2 % (3.8-10.2); PLATELET COUNT 250 K/MM3 (134-434); RBC 4.13 M/mm3 (3.60-5.2); WHITE BLOOD COUNT 5.8 K/mm3 (4.0-10.0)
--- NOTE | 2018-12-03 18:15 | PDOC ---
History of Present Illness - General Chief Complaint: Pain, Acute Stated Complaint: BACK PAIN Time Seen by Provider: 12/03/18 15:29 History Source: Patient Exam Limitations: No Limitations Past History - Past Medical History Allergies/Adverse Reactions: Allergies Allergy/AdvReac Type Severity Reaction Status Date / Time No Known Allergies Allergy Verified 12/03/18 15:28 Home Medications: Ambulatory Orders Cyclobenzaprine HCl [Flexeril -] 10 mg PO TID 04/30/18 Meloxicam [Mobic] 7.5 mg PO ASDIR 04/30/18 Pregabalin [Lyrica -] 100 mg PO TID 04/30/18 Percocet 10-325 mg Tablet 10 mg PO PRN PRN 08/25/18 Diphenhydramine HCl [Benadryl -] 25 mg PO PRN PRN 08/26/18 Cephalexin [Keflex] 500 mg PO BID #14 capsule 12/03/18 Anemia: Yes (SICKLE CELL TRAIT) Asthma: Yes Cancer: No Cardiac Disorders: No COPD: No Diabetes: No HTN: No Psychiatric Problems: Yes (ANXIETY, PANIC ATTACKS.) Seizures: No Thyroid Disease: No Other medical history: LUPUS - Surgical History Abdominal Surgery: Yes Cholecystectomy: No Lung Surgery: No - Immunization History Immunization Up to Date: Yes - Suicide/Smoking/Psychosocial Hx Smoking Status: No Smoking History: Current every day smoker Have you smoked in the past 12 months: No Number of Cigarettes Smoked Daily: 10 If you are a former smoker, when did you quit?: 1st Trimester Information on smoking cessation initiated: No 'Breaking Loose' booklet given: 08/25/18 Hx Alcohol Use: Yes (OCCASIONALLY) Drug/Substance Use Hx: No Substance Use Type: None Hx Substance Use Treatment: No *Physical Exam - Vital Signs Last Vital Signs Temp Pulse Resp BP Pulse Ox 97.5 F L 89 18 139/89 97 12/03/18 15:22 12/03/18 15:22 12/03/18 15:22 12/03/18 15:22 12/03/18 15:22 - Physical Exam General Appearance: No: Apparent Distress Respiratory/Chest: positive: Lungs Clear, Normal Breath Sounds. negative: Respiratory Distress Cardiovascular: positive: Regular Rhythm, Regular Rate, S1, S2. negative: Murmur Gastrointestinal/Abdominal: positive: Normal Bowel Sounds, Soft. negative: Tender, Distended, Guarding, Rebound Musculoskeletal: negative: CVA Tenderness Extremity: positive: Other (+mild pain with movement of R wrist, no swelling or deformity of R wrist noted, no erythema, no skin discoloration) Integumentary: positive: Normal Color. negative: Swelling, Ecchymosis, Bruising Neurologic: positive: Alert, Normal Mood/Affect ED Treatment Course - LABORATORY CBC & Chemistry Diagram: 12/03/18 17:15 12/03/18 17:15 - ADDITIONAL ORDERS Additional order review: Laboratory Results 12/03/18 17:15 Urine HCG, Qual Negative 12/03/18 17:15 RBC 4.13 MCV 91.3 MCHC 35.2 RDW 13.0 MPV 10.4 Neutrophils % 62.0 Lymphocytes % 26.4 D Monocytes % 7.2 Eosinophils % 3.5 Basophils % 0.9 - Medications Given in the ED: ED Medications Discontinued Medications Generic Name Dose Route Start Last Admin Trade Name Freq PRN Reason Stop Dose Admin Sodium Chloride 1,000 mls @ 1,000 mls/hr 12/03/18 16:42 12/03/18 17:45 Normal Saline - IV 12/03/18 17:41 1,000 mls/hr ASDIR STA Administration Ketorolac Tromethamine 30 mg 12/03/18 16:43 12/03/18 17:45 Toradol Injection - IVPUSH 12/03/18 16:44 30 mg ONCE ONE Administration Medical Decision Making - Medical Decision Making 33 y/o F hx of SLE, sickle cell trait, ?NSTEMI 08/2018 (states had cardiac cath which was normal) presents with R lower back pain radiating to lower abdomen x 2 days along with R wrist pain. Unsure if this is Lupus flare-up but states her flare-up does not usually present like this. Denies recent trauma. Also states noticed some blood in urine today. ?fever yesterday, but uncertain as did not check temperature. Denies URI sxs, sob, cp, n/v/d, dysuria, increased frequency/ urgency, unusual vaginal discharge. Denies having this type of pain before. Consider pyelo, UTI, kidney stones, ?lupus flare-up Plan: Labs, R wrist xray, Toradol, IVF, reassess 12/03/18 18:12 Urine positive for infection; also appears a bit contaminated given epithelial cells, but nitrite positive Blood in urine noted - patient states her menstrual cycle just started R wrist xray unremarkable Patient with improved pain Patient states she has carpal tunnel in R wrist and feels this could be related to carpal tunnel - R wrist atilio-wrapped for support; patient has ortho doctor for f/u re: her carpal tunnel 12/03/18 20:25 *DC/Admit/Observation/Transfer Diagnosis at time of Disposition: Right wrist pain UTI (urinary tract infection) Qualifiers: Urinary tract infection type: acute cystitis Hematuria presence: without hematuria Qualified Code(s): N30.00 - Acute cystitis without hematuria - Discharge Dispostion Disposition: HOME Condition at time of disposition: Stable Decision to Admit order: No - Prescriptions Prescriptions: Cephalexin [Keflex] 500 mg PO BID #14 capsule - Referrals - Patient Instructions Printed Discharge Instructions: DI for Carpal Tunnel Syndrome, DI for Acute Cystitis Additional Instructions: Thank you for choosing [facility]. It was a pleasure taking care of you. You were started on antibiotics for urine infection Drink at least 2-3L of water daily Please follow-up with your orthopedic doctor for your carpal tunnel Follow-up with your regular doctor as well Return to the Emergency Department if your symptoms worsen or persist, you have fever, severe abdominal pain, vomiting, flank pain or other concerning symptoms. - Post Discharge Activity
[2018-12-03 18:17] LABS: ALBUMIN 3.2 g/dl (3.4-5.0); BILIRUBIN,TOTAL 0.4 mg/dL (0.2-1); BLOOD UREA NITROGEN 7.2 mg/dL (7-18); CALCIUM 8.7 mg/dL (8.5-10.1); CREATININE 0.7 mg/dL (0.55-1.3); POTASSIUM 4.3 mmol/L (3.5-5.1); TOT PROT 6.9 g/dl (6.4-8.2)
[2018-12-03 18:45] LABS: EPI CELLS >36 /HPF (0-5/HPF); HYALINE CASTS 55 /lpf (0-8); URINE APPEARANCE TURBID; URINE BACTERIA 24.6 /hpf (NEGATIVE); URINE BILIRUBIN 1+ (NEGATIVE); URINE COLOR ORANGE; URINE GLUCOSE (UA) NEGATIVE (NEGATIVE); URINE KETONE NEGATIVE (NEGATIVE); URINE LEUK ESTERASE 2+ (NEGATIVE); URINE NITRITE POSITIVE (NEGATIVE); URINE PROTEIN 2+ (NEGATIVE); URINE WBC 99 /hpf (0-5)
[2018-12-03] MEDS ORDERED: ACETAMINOPHEN 1000 MG/100 ML VIAL (NON FORMULARY) IVPB ONE (18:47)
[2018-12-03 19:04] LABS: URINE RBC 1351 /hpf (0-4)
[2018-12-03] MEDS ORDERED: ACETAMINOPHEN INJECTION 100 ML IVPB ONE (19:19)
[2018-12-03] MEDS ORDERED: CEFTRIAXONE 1 GM in DEXTROSE 5%-WATER - 100 ML IVPB ONE (19:24)
[2018-12-03] MEDS ORDERED: CEFTRIAXONE 1 GM/50 ML BAG ONE (19:31)
[2018-12-03 21:57] VITALS: BP 145/93; PULSE 85
== END 2018-12-03 21:42 | disposition home or self-care (01) ==
LOC: JER 15:20
PROC: 3E0337Z Introduction of Electrolytic and Water Balance Substance into Peripheral Vein, Percutaneous Approach (ICD-10-PCS; principal; 2018-12-03)
PROC: 3E03329 Introduction of Other Anti-infective into Peripheral Vein, Percutaneous Approach (ICD-10-PCS; 2018-12-03)
PROC: 3E033NZ Introduction of Analgesics, Hypnotics, Sedatives into Peripheral Vein, Percutaneous Approach (ICD-10-PCS; 2018-12-03)
PROC: 3E0333Z Introduction of Anti-inflammatory into Peripheral Vein, Percutaneous Approach (ICD-10-PCS; 2018-12-03)
DX: N30.00 Acute cystitis without hematuria (principal); G56.01 Carpal tunnel syndrome, right upper limb; D57.3 Sickle-cell trait; M32.9 Systemic lupus erythematosus, unspecified; F41.8 Other specified anxiety disorders
CPT/HCPCS: 36415; 73110-TC-RT-FY; 74176-TC; 80053; 81003; 83690; 84703; 85025; 85651; 86140; 87086; 96361; 96365; 96375; 99284-25; J0131; J7030

== ENCOUNTER 2019-07-21 15:53 | Emergency (ER) | payer OTHER ==
[2019-07-21 16:09] VITALS: BMI 34.4
--- NOTE | 2019-07-21 16:15 | PDOC ---
Rapid Medical Evaluation Chief Complaint: Cold Symptoms Time Seen by Provider: 07/21/19 16:02 Medical Evaluation: Allergies Allergy/AdvReac Type Severity Reaction Status Date / Time No Known Allergies Allergy Verified 12/03/18 15:28 07/21/19 16:05 Pt c/o: fever x 3 days, took tylenol for temp 101.0, cough, headache, body aches, was at concert on thursday in [facility], mild sob Pt on brief exam: vss, lcta, Pt ordered for:straight to main ED for coronavirus r/o Pt to proceed to the ED Discharge Disposition - Diagnosis Cough - Referrals - Patient Instructions - Post Discharge Activity
[2019-07-21] MEDS ORDERED: ALBUTEROL SO4 2.5/IPRATROPIUM 0.5 INH SOL 3 ML VIAL.NEB. NEB ONE ×3 (17:15→19:35)
[2019-07-21] MEDS ORDERED: SODIUM CHLORIDE 0.9% 1000 ML INFUS.BAG IV ONE (17:15)
--- NOTE | 2019-07-21 17:36 | PDOC ---
Documentation entered by Stacy Villegas SCRIBE, acting as scribe for Seema Batista DO. Seema Batista DO: This documentation has been prepared by the induibsangeetha, Stacy Villegas SCRIBE, under my direction and personally reviewed by me in its entirety. I confirm that the documentation accurately reflects all work, treatment, procedures, and medical decision making performed by me. History of Present Illness - General Chief Complaint: Cold Symptoms Stated Complaint: FLU SYS Time Seen by Provider: 07/21/19 16:02 History Source: Patient Exam Limitations: No Limitations - History of Present Illness Initial Comments: 07/21/19 17:55 The patient is a 34-year-old female with a past medical history significant for lupus, sickle cell trait, elevated trop with negative cardiac cath, anxiety, and asthma who presents to the emergency department with fever, cough, body aches and chest discomfort. The patient reports starting Thursday to Thursday shes been having a fever with productive yellow sputum cough. The patient reports some associated chest discomfort with coughing. Additionally, the patient reports she has symptoms of body aches and nasal congestion. The patient reports taking Mucinex and Tylenol cold and flu to the congestion. The patient states she is eating and drinking at baseline. The patient recalls her last temperature was 101.2, and reports taking Tylenol 4 hours prior to arrival. Denies nausea, vomiting, diarrhea, sore throat. The patient reports she went to a concert over the weekend with 100s of people, not sure if she was exposed. Denies current medication use for lupus. Allergies: NKA Social history: +smoker, denies getting the flu shot this year. Past History - Past Medical History Allergies/Adverse Reactions: Allergies Allergy/AdvReac Type Severity Reaction Status Date / Time No Known Allergies Allergy Verified 07/21/19 16:12 Home Medications: Ambulatory Orders Cyclobenzaprine HCl [Flexeril -] 10 mg PO TID 04/30/18 Meloxicam [Mobic] 7.5 mg PO ASDIR 04/30/18 Pregabalin [Lyrica -] 100 mg PO TID 04/30/18 Percocet 10-325 mg Tablet 10 mg PO PRN PRN 08/25/18 Diphenhydramine HCl [Benadryl -] 25 mg PO PRN PRN 08/26/18 Cephalexin [Keflex] 500 mg PO BID #14 capsule 12/03/18 Albuterol Sulfate Inhaler - [Ventolin HFA Inhaler -] 1 - 2 inh PO Q4H PRN #1 inhaler 07/21/19 Anemia: Yes (SICKLE CELL TRAIT) Asthma: Yes Cancer: No Cardiac Disorders: No COPD: No Diabetes: No HTN: No Psychiatric Problems: Yes (ANXIETY, PANIC ATTACKS.) Seizures: No Thyroid Disease: No Other medical history: lupus - Surgical History Abdominal Surgery: Yes Cholecystectomy: No Lung Surgery: No - Immunization History Immunization Up to Date: Yes - Psycho Social/Smoking Cessation Hx Smoking Status: No Smoking History: Never smoked Have you smoked in the past 12 months: No Number of Cigarettes Smoked Daily: 10 If you are a former smoker, when did you quit?: 1st Trimester Information on smoking cessation initiated: No 'Breaking Loose' booklet given: 08/25/18 Hx Alcohol Use: No Drug/Substance Use Hx: No Substance Use Type: None Hx Substance Use Treatment: No Review of Systems - Review of Systems Able to Perform ROS?: Yes Comments:: 07/21/19 18:01 GENERAL/CONSTITUTIONAL: +fever. No chills or weakness. HEAD, EYES, EARS, NOSE AND THROAT: No change in vision. No ear pain or discharge. No sore throat CARDIOVASCULAR: +chest discomfort. No shortness of breath. RESPIRATORY: +cough. No wheezing, or hemoptysis. GASTROINTESTINAL: No nausea, vomiting, diarrhea or constipation. GENITOURINARY: No dysuria, frequency, or change in urination. MUSCULOSKELETAL: +body aches. No neck or back pain. SKIN: No rash NEUROLOGIC: No headache, vertigo, loss of consciousness, or change in strength/sensation. ENDOCRINE: No increased thirst. No abnormal weight change. HEMATOLOGIC/LYMPHATIC: No anemia, easy bleeding, or history of blood clots. ALLERGIC/IMMUNOLOGIC: No hives or skin allergy. *Physical Exam - Vital Signs Last Vital Signs Temp Pulse Resp BP Pulse Ox 98 F 88 19 150/81 97 07/21/19 16:04 07/21/19 16:04 07/21/19 16:04 07/21/19 16:04 07/21/19 16:04 - Physical Exam 07/21/19 18:01 GENERAL: Awake, alert, and fully oriented, in no acute distress HEAD: No signs of trauma EYES: PERRLA, EOMI, sclera anicteric, conjunctiva clear ENT: +nasal congestion, posterior pharynx clear. Auricles normal inspection, hearing grossly normal, Moist mucosa NECK: Normal ROM, supple, no lymphadenopathy, JVD, or masses LUNGS: Breath sounds equal, clear to auscultation bilaterally. No wheezes, and no crackles HEART: Regular rate and rhythm, normal S1 and S2, no murmurs, rubs or gallops ABDOMEN: Soft, nontender, obese. EXTREMITIES: Normal range of motion, no edema of the legs. NEUROLOGICAL: Cranial nerves II through XII grossly intact. Normal speech, normal gait SKIN: Warm, Dry, normal turgor, no rashes or lesions noted. ED Treatment Course - LABORATORY CBC & Chemistry Diagram: 07/21/19 17:15 07/21/19 17:15 Medical Decision Making - Medical Decision Making 07/21/19 17:34 a/p: 34yo female with cough, fever, body aches since Thursday -pt was at a concert over the weekend and her symptoms started on thursday -pt follows at [facility] -pt states hx of lupus and sickle cell trait-not on steroids or meds for lupus -pt did not get a flu swab -will send labs, flu, rsv, cxr, trop -will give nss, neb -will monitor and reassess -will also call the [facility] and send swab for mace virus 07/21/19 18:12 forms faxed to [facility] 07/21/19 18:24 FLU/RSV neg 07/21/19 19:14 pt states still having pain will add toradol will give another neb, pt feels better with neb pt updated with the results will obtain cxr Discharge - Discharge Information Problems reviewed: Yes Clinical Impression/Diagnosis: Cough, Fever Condition: Stable Disposition: HOME - Admission No - Additional Discharge Information Prescriptions: Albuterol Sulfate Inhaler - [Ventolin HFA Inhaler -] 1 - 2 inh PO Q4H PRN #1 inhaler PRN Reason: Shortness Of Breath - Follow up/Referral Referrals: [facility] [Other] - Patient Discharge Instructions Patient Printed Discharge Instructions: DI for Cough -- Adult Additional Instructions: Please drink plenty of fluids. Please take tylenol or motrin as needed for fevers, body aches, or pain. Please use the inhaler as needed for the shortness of breath. Please stay on home quarantine. Please make an appointment to follow up for your elevated blood glucose with your PMD. You were swabbed for mace virus in the ER and your results are pending. Please call the Department of alth with any further questions. Please stay on home quarantine. Please do not have visitors and please stay at home until your results have returned. Please return to the ER with any further concerns or complaints. - Post Discharge Activity
[2019-07-21] MEDS ORDERED: ACETAMINOPHEN 1000 MG/100 ML VIAL (NON FORMULARY) IVPB ONE (17:53)
[2019-07-21] MEDS ORDERED: ACETAMINOPHEN INJECTION 100 ML IVPB ONE (17:54)
[2019-07-21 18:27] LABS: BASO % 1.1 % (0-2.0); EOS % 1.7 % (0-4.5); HEMATOCRIT 39.9 % (32.4-45.2); HEMOGLOBIN 13.6 GM/dL (10.7-15.3); LYMPH % 26.4 % (8-40); MCH 32.8 pg (25.7-33.7); MCHC 34.1 g/dl (32.0-36.0); MEAN CELL VOLUME 96.1 fl (80-96); MEAN PLT VOLUME 10.8 fl (7.5-11.1); MONO % 5.2 % (3.8-10.2); NEUT % 65.6 % (42.8-82.8); PLATELET COUNT 217 K/MM3 (134-434); RBC 4.15 M/mm3 (3.60-5.2); RDW 13.2 % (11.6-15.6); WHITE BLOOD COUNT 6.3 K/mm3 (4.0-10.0)
[2019-07-21 18:44] LABS: PLATELET ESTIMATE ADEQUATE
[2019-07-21 18:57] LABS: ALBUMIN 3.2 g/dl (3.4-5.0); ALK PHOS 70 U/L (45-117); ANION GAP 8 MMOL/L (8-16); BILIRUBIN,TOTAL 0.4 mg/dL (0.2-1); BLOOD UREA NITROGEN 8.6 mg/dL (7-18); CALCIUM 8.6 mg/dL (8.5-10.1); CHLORIDE 107 mmol/L (98-107); CO2 25 mmol/L (21-32); CREATININE 0.8 mg/dL (0.55-1.3); GLUCOSE,RANDOM 158 mg/dL (74-106); MAGNESIUM 1.7 mg/dL (1.8-2.4); POTASSIUM 3.8 mmol/L (3.5-5.1); SGOT/AST 31 U/L (15-37); SGPT/ALT 46 U/L (13-61); SODIUM 140 mmol/L (136-145); TOT PROT 6.6 g/dl (6.4-8.2)
[2019-07-21] MEDS ORDERED: KETOROLAC TROMETHAMINE 30 MG/1 ML VIAL IVPUSH ONE (19:13)
[2019-07-21] MEDS ORDERED: MAGNESIUM SULF 50% (8.12 MEQ/2 ML-1 GM VIAL) IVPB ONE (19:14)
[2019-07-21] MEDS ORDERED: KETOROLAC TROMETHAMINE 30 MG/1 ML VIAL ONE (19:35)
[2019-07-21] MEDS ORDERED: MAGNESIUM 1GM/D5W - 1 GM/100 ML IVPB IVPB ONE (19:35)
[2019-07-21 19:51] VITALS: BP 115/70; PULSE 72; TEMP 98.4
== END 2019-07-21 20:56 | disposition home or self-care (01) ==
LOC: JER 15:53
PROC: 3E0F7GC Introduction of Other Therapeutic Substance into Respiratory Tract, Via Natural or Artificial Opening (ICD-10-PCS; principal; 2019-07-21)
PROC: 3E0F7GC Introduction of Other Therapeutic Substance into Respiratory Tract, Via Natural or Artificial Opening (ICD-10-PCS; 2019-07-21)
PROC: 3E033GC Introduction of Other Therapeutic Substance into Peripheral Vein, Percutaneous Approach (ICD-10-PCS; 2019-07-21)
PROC: 3E033NZ Introduction of Analgesics, Hypnotics, Sedatives into Peripheral Vein, Percutaneous Approach (ICD-10-PCS; 2019-07-21)
PROC: 3E0333Z Introduction of Anti-inflammatory into Peripheral Vein, Percutaneous Approach (ICD-10-PCS; 2019-07-21)
DX: R50.9 Fever, unspecified (principal); R05 Cough; F41.9 Anxiety disorder, unspecified; D57.3 Sickle-cell trait; Z87.39 Personal history of other diseases of the musculoskeletal system and connective tissue
CPT/HCPCS: 36415; 71045-TC-FY; 80053; 82550; 82553; 83605; 83735; 83880; 84484; 84703; 85025; 87804; 87807; 99284-25; J0131; J7030

== ENCOUNTER 2019-10-23 06:14 | Emergency (ER) | payer OTHER ==
[2019-10-23 06:31] VITALS: BMI 31.3
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
[2019-10-23 08:07] LABS: BASO % 0.9 % (0-2.0); EOS % 0.4 % (0-4.5); HEMATOCRIT 39.8 % (32.4-45.2); HEMOGLOBIN 13.7 GM/dL (10.7-15.3); MCH 33.1 pg (25.7-33.7); MCHC 34.5 g/dl (32.0-36.0); MEAN CELL VOLUME 95.9 fl (80-96); MEAN PLT VOLUME 9.1 fl (7.5-11.1); MONO % 5.5 % (3.8-10.2); NEUT % 75.2 % (42.8-82.8); PLATELET COUNT 344 K/MM3 (134-434); RBC 4.15 M/mm3 (3.60-5.2); RDW 12.8 % (11.6-15.6)
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
[2019-10-23 08:31] LABS: INR 0.92 (0.83-1.09); PROTHROMBIN TIME (PATIENT) 10.8 SEC (9.7-13.0)
[2019-10-23 08:34] LABS: ACTIVATED PTT 27.4 SECONDS (25.2-36.5)
[2019-10-23 08:39] LABS: ALBUMIN 3.2 g/dl (3.4-5.0); BILIRUBIN,TOTAL 0.2 mg/dL (0.2-1); BLOOD UREA NITROGEN 8.9 mg/dL (7-18); CALCIUM 8.4 mg/dL (8.5-10.1); CREATININE 0.8 mg/dL (0.55-1.3); TOT PROT 6.8 g/dl (6.4-8.2)
[2019-10-23] MEDS ORDERED: IBUPROFEN 600 MG TABLET (FP) PO ONE ×2 (08:56→08:58)
[2019-10-23 10:42] VITALS: BP 113/73; PULSE 76; TEMP 97.6
== END 2019-10-23 10:43 | disposition home or self-care (01) ==
LOC: JER 06:14 → SUPCPDRO 06:14 → JER 10:43
PROC: 0JQ10ZZ Repair Face Subcutaneous Tissue and Fascia, Open Approach (ICD-10-PCS; principal; 2019-10-23)
DX: S01.81XA Laceration without foreign body of other part of head, initial encounter (principal)
CPT/HCPCS: 12011; 36415; 70450-TC; 70486-TC; 71045-TC-FY; 72125-TC; 80053; 84703; 85025; 85610; 85730; 99284-25

== ENCOUNTER 2022-03-14 16:50 | Inpatient (IN) | payer OTHER ==
[2022-03-14 19:55] LABS: BASO % 0.6 % (0-2.0); EOS % 1.7 % (0-4.5); HEMATOCRIT 37.3 % (32.4-45.2); HEMOGLOBIN 12.9 GM/dL (10.7-15.3); LYMPH % 19.6 % (8-40); MCH 32.3 pg (25.7-33.7); MCHC 34.5 g/dl (32.0-36.0); MEAN CELL VOLUME 93.5 fl (80-96); MEAN PLT VOLUME 10.4 fl (7.5-11.1); MONO % 6.4 % (3.8-10.2); NEUT % 71.7 % (42.8-82.8); PLATELET COUNT 261 10^3/uL (134-434); RBC 3.99 M/mm3 (3.60-5.2); WHITE BLOOD COUNT 8.1 K/mm3 (4.0-10.0)
[2022-03-14] MEDS ORDERED: ACETAMINOPHEN 1000 MG/100 ML BAG IVPB ONE (20:08)
[2022-03-14] MEDS ORDERED: ACETAMINOPHEN INJECTION 100 ML IVPB ONE (20:10)
[2022-03-14 20:12] LABS: ALBUMIN 3.1 g/dl (3.4-5.0); CALCIUM 8.9 mg/dL (8.5-10.1)
[2022-03-14 20:14] LABS: BLOOD UREA NITROGEN 7.5 mg/dL (7-18)
[2022-03-14 20:15] LABS: CREATININE 0.7 mg/dL (0.55-1.3)
[2022-03-14 20:17] LABS: BILIRUBIN,TOTAL 0.3 mg/dL (0.2-1); TOT PROT 6.4 g/dl (6.4-8.2)
[2022-03-14] MEDS ORDERED: morphine CARPU-JECT 4 MG/1 ML DISP.SYRIN IVPUSH ONE (23:17)
[2022-03-14] MEDS ORDERED: morphine SULFATE 4 MG/ML VIAL ONE (23:20)
[2022-03-15] MEDS ORDERED: NICOTINE 14 MG/24 HOURS TOPICAL PATCH TD PRN (01:31)
[2022-03-15] MEDS: ACETAMINOPHEN 1000 MG/100 ML BAG IVPB PRN ×3 (02:00→16:01)
[2022-03-15] MEDS ORDERED: KETOROLAC TROMETHAMINE 15 MG/ML VIAL IVPUSH PRN (04:33)
[2022-03-15] MEDS ORDERED: oxyCODONE HCL 5 MG TABLET PO ONE (06:01)
[2022-03-15] MEDS: INSULIN SLIDING SCALE (NOVOLOG) 1 VIAL SQ SCH ×3 (06:26→16:53)
[2022-03-15 07:38] VITALS: RESP 18; BMI 34.3
[2022-03-15] MEDS ORDERED: OFLOXACIN 0.3% OTIC SOLUTION 5 ML BOTTLE AS SCH (10:00)
[2022-03-15] MEDS ORDERED: NEOMYCIN/POLYMYXN/HC OTIC SUSPENSION 10 ML BOTTLE AS SCH (10:00)
[2022-03-15] MEDS ORDERED: ENOXAPARIN NA (PORCINE) 40 MG/0.4 ML DISP.SYRIN SQ SCH (10:00)
[2022-03-15 12:23] LABS: BASO % 0.8 % (0-2.0); EOS % 3.7 % (0-4.5); HEMATOCRIT 37.1 % (32.4-45.2); HEMOGLOBIN 12.6 GM/dL (10.7-15.3); LYMPH % 38.2 % (8-40); MCH 31.6 pg (25.7-33.7); MCHC 33.9 g/dl (32.0-36.0); MEAN CELL VOLUME 93.3 fl (80-96); MEAN PLT VOLUME 10.8 fl (7.5-11.1); NEUT % 48.3 % (42.8-82.8); PLATELET COUNT 246 10^3/uL (134-434); RBC 3.98 M/mm3 (3.60-5.2); RDW 11.9 % (11.6-15.6); WHITE BLOOD COUNT 5.6 K/mm3 (4.0-10.0)
[2022-03-15 12:47] LABS: ALBUMIN 2.7 g/dl (3.4-5.0); BLOOD UREA NITROGEN 8.4 mg/dL (7-18); CALCIUM 8.3 mg/dL (8.5-10.1)
[2022-03-15 12:48] LABS: MAGNESIUM 1.8 mg/dL (1.8-2.4)
[2022-03-15 12:50] LABS: CREATININE 0.6 mg/dL (0.55-1.3); PHOSPHOROUS 3.2 mg/dL (2.5-4.9)
[2022-03-15 12:51] LABS: TOT PROT 5.8 g/dl (6.4-8.2)
[2022-03-15 12:52] LABS: BILIRUBIN,TOTAL 0.2 mg/dL (0.2-1)
[2022-03-15 17:32] VITALS: BP 114/78; PULSE 80; TEMP 97
== END 2022-03-15 18:32 | disposition home or self-care (01) | DRG 115 ==
LOC: JER 16:50 → JERBED 19:18 → J6S 03-15 05:08
PROVIDERS: ADMIT Internal Medicine; ATTEND Internal Medicine
DX: H60.12 Cellulitis of left external ear (principal); M32.9 Systemic lupus erythematosus, unspecified; H92.02 Otalgia, left ear; R06.09 Other forms of dyspnea; R73.9 Hyperglycemia, unspecified; F17.210 Nicotine dependence, cigarettes, uncomplicated; D57.3 Sickle-cell trait; G56.01 Carpal tunnel syndrome, right upper limb; F41.0 Panic disorder [episodic paroxysmal anxiety]; E66.9 Obesity, unspecified; Z68.34 Body mass index [BMI] 34.0-34.9, adult
CPT/HCPCS: 0241U-QW; 36415; 71046-TC-FY; 80053; 82962; 83735; 84100; 85025; 93005; 93010; 99285-25

== ENCOUNTER 2022-10-31 17:18 | Inpatient (IN) | payer OTHER ==
[2022-10-31 17:46] VITALS: BMI 35.9
[2022-10-31] MEDS ORDERED: CEFTRIAXONE 1 GM in DEXTROSE 5%-WATER - 100 ML IVPB ONE (18:41)
[2022-10-31] MEDS ORDERED: VANCOMYCIN/WATER 1,250 MG/250 ML BAG (RESTRICTED TO ID ONLY) IVPB ONE (18:45)
[2022-10-31] MEDS ORDERED: CEFTRIAXONE 1 GM/50 ML BAG ONE (18:52)
[2022-10-31] MEDS ORDERED: VANCOMYCIN/WATER 1250 MG 1,250 MG/250 ML BAG IVPB ONE (19:23)
[2022-10-31 20:31] LABS: BASO % 0.5 % (0-2.0); EOS % 0.4 % (0-4.5); HEMATOCRIT 37.3 % (32.4-45.2); HEMOGLOBIN 12.4 GM/dL (10.7-15.3); LYMPH % 16.9 % (8-40); MCH 30.3 pg (25.7-33.7); MCHC 33.3 g/dl (32.0-36.0); MEAN CELL VOLUME 91.1 fl (80-96); MEAN PLT VOLUME 10.9 fl (7.5-11.1); MONO % 9.6 % (3.8-10.2); NEUT % 72.6 % (42.8-82.8); PLATELET COUNT 253 10^3/uL (134-434); RBC 4.09 M/mm3 (3.60-5.2); RDW 12.8 % (11.6-15.6); WHITE BLOOD COUNT 11.1 K/mm3 (4.0-10.0)
[2022-10-31 20:47] LABS: POTASSIUM 4.1 mmol/L (3.5-5.1)
[2022-10-31] MEDS ORDERED: KETOROLAC TROMETHAMINE 30 MG/1 ML VIAL IVPUSH ONE (20:47)
[2022-10-31 20:48] LABS: CALCIUM 8.7 mg/dL (8.5-10.1)
[2022-10-31 20:49] LABS: ALBUMIN 3.2 g/dl (3.4-5.0); BLOOD UREA NITROGEN 8.3 mg/dL (7-18)
[2022-10-31 20:52] LABS: CREATININE 0.7 mg/dL (0.55-1.3)
[2022-10-31 20:54] LABS: BILIRUBIN,TOTAL 0.5 mg/dL (0.2-1); TOT PROT 6.9 g/dl (6.4-8.2)
[2022-10-31] MEDS ORDERED: KETOROLAC TROMETHAMINE 30 MG/1 ML VIAL ONE (21:00)
[2022-11-01] MEDS: PIPERACILLIN/TAZOB 3.375 GM 3.375 GM in DEXTROSE 5%-WATER - 50 ML IVPB SCH ×3 (00:09→09:42)
[2022-11-01] MEDS: ACETAMINOPHEN 1000 MG/100 ML BAG IVPB PRN ×2 (03:53→12:43)
[2022-11-01 08:16] LABS: HEMOGLOBIN 12.1 GM/dL (10.7-15.3); MCH 31.1 pg (25.7-33.7); MCHC 33.8 g/dl (32.0-36.0); MEAN CELL VOLUME 92.1 fl (80-96); MEAN PLT VOLUME 10.3 fl (7.5-11.1); PLATELET COUNT 220 10^3/uL (134-434); RBC 3.91 M/mm3 (3.60-5.2); RDW 12.5 % (11.6-15.6); WHITE BLOOD COUNT 7.9 K/mm3 (4.0-10.0)
[2022-11-01 09:18] LABS: POTASSIUM 3.3 mmol/L (3.5-5.1)
[2022-11-01 09:27] LABS: ALBUMIN 2.7 g/dl (3.4-5.0)
[2022-11-01 09:28] LABS: BLOOD UREA NITROGEN 7.7 mg/dL (7-18); CALCIUM 8.4 mg/dL (8.5-10.1)
[2022-11-01 09:31] LABS: CREATININE 0.7 mg/dL (0.55-1.3)
[2022-11-01 09:32] LABS: BILIRUBIN,TOTAL 0.8 mg/dL (0.2-1); TOT PROT 6.2 g/dl (6.4-8.2)
[2022-11-01] MEDS ORDERED: ENOXAPARIN NA (PORCINE) 40 MG/0.4 ML DISP.SYRIN SQ SCH (10:00)
[2022-11-01] MEDS ORDERED: KCL 10 MEQ IVPB 10 MEQ/100 ML INFUS.BAG IVPB SCH (11:15)
[2022-11-01 12:25] LABS: EPI CELLS 22 /uL (0-25.1); HYALINE CASTS 1 /uL (0-3.1); PH,URINE 5.5 (5.0-8.0); URINE APPEARANCE CLEAR; URINE BACTERIA 327 /uL (0-1359); URINE BILIRUBIN NEGATIVE (NEGATIVE); URINE COLOR YELLOW; URINE GLUCOSE (UA) NEGATIVE (NEGATIVE); URINE KETONE NEGATIVE (NEGATIVE); URINE LEUK ESTERASE 1+ (NEGATIVE); URINE NITRITE NEGATIVE (NEGATIVE); URINE PROTEIN TRACE (NEGATIVE); URINE RBC 34 /uL (0-23.9); URINE WBC 232 /uL (0-25.8)
[2022-11-01] MEDS ORDERED: SODIUM CHLORIDE 500 ML IV STA (14:43)
[2022-11-01] MEDS ORDERED: SODIUM CHLORIDE 1,000 ML IV SCH ×2 (14:45→15:22)
[2022-11-01] MEDS: VANCOMYCIN/WATER FOR INJ (PEG) 1,000 MG/200 ML BAG IVPB SCH (17:04)
[2022-11-01] MEDS ORDERED: VANCOMYCIN/WATER 1,250 MG/250 ML BAG (RESTRICTED TO ID ONLY) IVPB SCH ×2 (18:00)
[2022-11-01] MEDS: DOCUSATE SODIUM 100 MG CAPSULE (FP) PO SCH (22:16)
[2022-11-02] MEDS: VANCOMYCIN/WATER FOR INJ (PEG) 1,000 MG/200 ML BAG IVPB SCH ×2 (02:04→14:58)
[2022-11-02 08:49] LABS: BASO % 0.7 % (0-2.0); EOS % 1.8 % (0-4.5); HEMATOCRIT 35.1 % (32.4-45.2); HEMOGLOBIN 11.8 GM/dL (10.7-15.3); LYMPH % 27.6 % (8-40); MCHC 33.5 g/dl (32.0-36.0); MEAN CELL VOLUME 92.4 fl (80-96); MEAN PLT VOLUME 10.7 fl (7.5-11.1); MONO % 11.6 % (3.8-10.2); NEUT % 58.3 % (42.8-82.8); PLATELET COUNT 218 10^3/uL (134-434); RDW 12.2 % (11.6-15.6); WHITE BLOOD COUNT 6.4 K/mm3 (4.0-10.0)
[2022-11-02 08:59] LABS: POTASSIUM 3.8 mmol/L (3.5-5.1)
[2022-11-02 09:25] LABS: CALCIUM 8.5 mg/dL (8.5-10.1)
[2022-11-02 09:26] LABS: ALBUMIN 2.6 g/dl (3.4-5.0); BLOOD UREA NITROGEN 9.1 mg/dL (7-18); MAGNESIUM 1.9 mg/dL (1.8-2.4)
[2022-11-02 09:29] LABS: CREATININE 0.6 mg/dL (0.55-1.3)
[2022-11-02 09:31] LABS: BILIRUBIN,TOTAL 0.4 mg/dL (0.2-1)
[2022-11-02] MEDS ORDERED: ACETAMINOPHEN 1000 MG/100 ML BAG IVPB PRN (09:34)
[2022-11-02] MEDS: DOCUSATE SODIUM 100 MG CAPSULE (FP) PO SCH ×2 (10:47→21:37)
[2022-11-02] MEDS: ENOXAPARIN NA (PORCINE) 40 MG/0.4 ML DISP.SYRIN SQ SCH (10:47)
[2022-11-02] MEDS: PIPERACILLIN/TAZOB 3.375 GM 3.375 GM in DEXTROSE 5%-WATER - 50 ML IVPB SCH ×2 (11:10→11:11)
[2022-11-02 11:29] LABS: ERYTHROCYTE SEDIMENTATION RATE 90 mm/hr (0-20)
[2022-11-02] MEDS ORDERED: KETOROLAC TROMETHAMINE 30 MG/1 ML VIAL IVPUSH ONE (18:21)
[2022-11-03] MEDS: VANCOMYCIN/WATER FOR INJ (PEG) 1,000 MG/200 ML BAG IVPB SCH ×2 (02:23→15:54)
[2022-11-03 09:03] LABS: BASO % 1.1 % (0-2.0); EOS % 3.2 % (0-4.5); HEMATOCRIT 36.8 % (32.4-45.2); HEMOGLOBIN 12.1 GM/dL (10.7-15.3); LYMPH % 29.1 % (8-40); MCH 30.4 pg (25.7-33.7); MCHC 32.8 g/dl (32.0-36.0); MEAN CELL VOLUME 92.7 fl (80-96); MEAN PLT VOLUME 10.3 fl (7.5-11.1); MONO % 11.2 % (3.8-10.2); NEUT % 55.4 % (42.8-82.8); PLATELET COUNT 250 10^3/uL (134-434); RBC 3.97 M/mm3 (3.60-5.2); RDW 12.6 % (11.6-15.6); WHITE BLOOD COUNT 5.6 K/mm3 (4.0-10.0)
[2022-11-03 09:34] LABS: POTASSIUM 4.1 mmol/L (3.5-5.1)
[2022-11-03 09:41] LABS: ALBUMIN 2.6 g/dl (3.4-5.0); CALCIUM 8.5 mg/dL (8.5-10.1); MAGNESIUM 1.9 mg/dL (1.8-2.4)
[2022-11-03 09:42] LABS: BLOOD UREA NITROGEN 8.9 mg/dL (7-18)
[2022-11-03 09:44] LABS: CREATININE 0.6 mg/dL (0.55-1.3)
[2022-11-03 09:46] LABS: BILIRUBIN,TOTAL 0.2 mg/dL (0.2-1)
[2022-11-03] MEDS ORDERED: ACETAMINOPHEN 1000 MG/100 ML BAG IVPB PRN (10:41)
[2022-11-03] MEDS: ENOXAPARIN NA (PORCINE) 40 MG/0.4 ML DISP.SYRIN SQ SCH (10:48)
[2022-11-03] MEDS: DOCUSATE SODIUM 100 MG CAPSULE (FP) PO SCH ×2 (10:48→23:11)
[2022-11-03] MEDS: oxyCODONE HCL 5 MG TABLET PO PRN ×2 (15:53→21:38)
[2022-11-04] MEDS: oxyCODONE HCL 5 MG TABLET PO PRN ×4 (03:35→22:53)
[2022-11-04] MEDS: VANCOMYCIN/WATER FOR INJ (PEG) 1,000 MG/200 ML BAG IVPB SCH ×2 (03:36→21:31)
[2022-11-04 08:29] LABS: EOS % 3.9 % (0-4.5); HEMATOCRIT 36.3 % (32.4-45.2); LYMPH % 33.8 % (8-40); MCH 30.7 pg (25.7-33.7); MCHC 33.2 g/dl (32.0-36.0); MEAN CELL VOLUME 92.4 fl (80-96); MEAN PLT VOLUME 9.9 fl (7.5-11.1); MONO % 10.4 % (3.8-10.2); NEUT % 50.9 % (42.8-82.8); PLATELET COUNT 255 10^3/uL (134-434); RBC 3.93 M/mm3 (3.60-5.2); RDW 12.4 % (11.6-15.6); WHITE BLOOD COUNT 6.1 K/mm3 (4.0-10.0)
[2022-11-04 08:52] LABS: ALBUMIN 2.6 g/dl (3.4-5.0); CALCIUM 8.7 mg/dL (8.5-10.1)
[2022-11-04 08:53] LABS: BLOOD UREA NITROGEN 11.6 mg/dL (7-18)
[2022-11-04 08:56] LABS: CREATININE 0.7 mg/dL (0.55-1.3)
[2022-11-04 08:57] LABS: BILIRUBIN,TOTAL 0.2 mg/dL (0.2-1); MAGNESIUM 1.8 mg/dL (1.8-2.4); TOT PROT 6.2 g/dl (6.4-8.2)
[2022-11-04] MEDS: ENOXAPARIN NA (PORCINE) 40 MG/0.4 ML DISP.SYRIN SQ SCH (09:50)
[2022-11-04] MEDS: DOCUSATE SODIUM 100 MG CAPSULE (FP) PO SCH ×2 (09:51→21:31)
[2022-11-04 21:07] LABS: CYCLIC CITRULLINE PEPTIDE AB 3 units (0-19)
[2022-11-05] MEDS ORDERED: ONDANSETRON 4 MG/2 ML VIAL IVPUSH ONE (04:30)
[2022-11-05] MEDS: oxyCODONE HCL 5 MG TABLET PO PRN ×4 (06:31→19:50)
[2022-11-05 09:47] LABS: BASO % 0.3 % (0-2.0); EOS % 4.2 % (0-4.5); HEMATOCRIT 35.4 % (32.4-45.2); HEMOGLOBIN 11.9 GM/dL (10.7-15.3); LYMPH % 34.1 % (8-40); MCH 30.9 pg (25.7-33.7); MCHC 33.5 g/dl (32.0-36.0); MEAN CELL VOLUME 92.3 fl (80-96); MONO % 8.2 % (3.8-10.2); NEUT % 53.2 % (42.8-82.8); PLATELET COUNT 265 10^3/uL (134-434); RBC 3.84 M/mm3 (3.60-5.2); RDW 12.2 % (11.6-15.6); WHITE BLOOD COUNT 5.1 K/mm3 (4.0-10.0)
[2022-11-05] MEDS: DOCUSATE SODIUM 100 MG CAPSULE (FP) PO SCH ×2 (09:59→21:25)
[2022-11-05] MEDS: ENOXAPARIN NA (PORCINE) 40 MG/0.4 ML DISP.SYRIN SQ SCH (09:59)
[2022-11-05] MEDS: VANCOMYCIN/WATER FOR INJ (PEG) 1,000 MG/200 ML BAG IVPB SCH ×2 (09:59→21:24)
[2022-11-05 10:08] LABS: CALCIUM 8.7 mg/dL (8.5-10.1)
[2022-11-05 10:10] LABS: ALBUMIN 2.6 g/dl (3.4-5.0); BLOOD UREA NITROGEN 12.9 mg/dL (7-18); MAGNESIUM 1.9 mg/dL (1.8-2.4)
[2022-11-05 10:12] LABS: CREATININE 0.7 mg/dL (0.55-1.3)
[2022-11-05 10:14] LABS: BILIRUBIN,TOTAL 0.4 mg/dL (0.2-1); TOT PROT 6.2 g/dl (6.4-8.2)
[2022-11-06] MEDS ORDERED: ONDANSETRON 4 MG/2 ML VIAL IVPUSH ONE (00:43)
[2022-11-06] MEDS: oxyCODONE HCL 5 MG TABLET PO PRN ×3 (02:19→17:56)
[2022-11-06 08:23] LABS: BASO % 1.3 % (0-2.0); HEMATOCRIT 36.2 % (32.4-45.2); HEMOGLOBIN 12.2 GM/dL (10.7-15.3); LYMPH % 32.3 % (8-40); MCH 30.8 pg (25.7-33.7); MCHC 33.7 g/dl (32.0-36.0); MEAN CELL VOLUME 91.6 fl (80-96); MEAN PLT VOLUME 10.4 fl (7.5-11.1); NEUT % 54.4 % (42.8-82.8); PLATELET COUNT 261 10^3/uL (134-434); RBC 3.96 M/mm3 (3.60-5.2); RDW 12.3 % (11.6-15.6); WHITE BLOOD COUNT 6.1 K/mm3 (4.0-10.0)
[2022-11-06 08:53] LABS: POTASSIUM 4.3 mmol/L (3.5-5.1)
[2022-11-06 09:02] LABS: ALBUMIN 2.7 g/dl (3.4-5.0)
[2022-11-06 09:03] LABS: MAGNESIUM 1.9 mg/dL (1.8-2.4)
[2022-11-06 09:06] LABS: CREATININE 0.6 mg/dL (0.55-1.3)
[2022-11-06 09:07] LABS: BILIRUBIN,TOTAL 0.4 mg/dL (0.2-1); TOT PROT 6.4 g/dl (6.4-8.2)
[2022-11-06] MEDS: VANCOMYCIN/WATER FOR INJ (PEG) 1,000 MG/200 ML BAG IVPB SCH ×2 (10:43→21:30)
[2022-11-06] MEDS: ENOXAPARIN NA (PORCINE) 40 MG/0.4 ML DISP.SYRIN SQ SCH (10:43)
[2022-11-06] MEDS: DOCUSATE SODIUM 100 MG CAPSULE (FP) PO SCH ×2 (10:44→21:30)
[2022-11-06] MEDS: LIDOCAINE 5% TOPICAL PATCH TP SCH (16:56)
[2022-11-06] MEDS: CYCLOBENZAPRINE HCL 5 MG TABLET PO PRN (21:30)
[2022-11-06] MEDS: GABAPENTIN 100 MG CAPSULE PO SCH (21:30)
[2022-11-06] MEDS ORDERED: LIDOCAINE PATCH REMOVAL MC SCH (22:00)
[2022-11-07] MEDS: oxyCODONE HCL 5 MG TABLET PO PRN ×2 (01:28→05:27)
[2022-11-07] MEDS: GABAPENTIN 100 MG CAPSULE PO SCH ×2 (05:28→14:28)
[2022-11-07] MEDS: CYCLOBENZAPRINE HCL 5 MG TABLET PO PRN (08:25)
[2022-11-07 10:10] VITALS: BP 104/52; PULSE 67; RESP 18; TEMP 97.5
[2022-11-07] MEDS: VANCOMYCIN/WATER FOR INJ (PEG) 1,000 MG/200 ML BAG IVPB SCH (10:20)
[2022-11-07] MEDS: LIDOCAINE 5% TOPICAL PATCH TP SCH (10:20)
[2022-11-07] MEDS: ENOXAPARIN NA (PORCINE) 40 MG/0.4 ML DISP.SYRIN SQ SCH (10:20)
[2022-11-07] MEDS: DOCUSATE SODIUM 100 MG CAPSULE (FP) PO SCH (10:21)
== END 2022-11-07 14:02 | disposition home or self-care (01) | DRG 383 ==
LOC: JER 17:18 → JERBED 20:16 → OBSVTOIN 20:16 → J8W 23:32
PROVIDERS: ADMIT Internal Medicine; ATTEND Nurse Practitioner Acute Care
PROC: 0H9 Skin and Breast, Drainage (ICD-10-PCS; principal; 2022-10-31)
PROC: 2W3JX1Z Immobilization of Right Finger using Splint (ICD-10-PCS; 2022-10-31)
DX: L03.011 Cellulitis of right finger (principal); M32.9 Systemic lupus erythematosus, unspecified; D72.829 Elevated white blood cell count, unspecified; F17.210 Nicotine dependence, cigarettes, uncomplicated; A49.02 Methicillin resistant Staphylococcus aureus infection, unspecified site
CPT/HCPCS: 36415; 73130-TC-RT-FY; 73222-TC; 80053; 81003; 83735; 85025; 85027; 85651; 86038; 86140; 86160; 86200; 86225; 86235; 86431; 87040; 87070; 87081; 87186; 87205; 97116-GP; 97161-GP; 99285-25; G0480

== ENCOUNTER 2022-12-13 21:01 | Emergency (ER) | payer OTHER ==
[2022-12-13 21:08] VITALS: RESP 18; TEMP 97.9; BMI 33.9
[2022-12-13] MEDS ORDERED: METOCLOPRAMIDE HCL INJECTION 10 MG/2 ML VIAL IVPUSH STA (21:17)
[2022-12-13] MEDS ORDERED: SODIUM CHLORIDE 1,000 ML IV ONE (21:17)
[2022-12-13] MEDS ORDERED: ACETAMINOPHEN 1000 MG/100 ML BAG IVPB ONE (21:19)
[2022-12-13] MEDS ORDERED: METOCLOPRAMIDE HCL INJECTION 10 MG/2 ML VIAL ONE (21:42)
[2022-12-13] MEDS ORDERED: ACETAMINOPHEN INJECTION 100 ML IVPB ONE (21:42)
[2022-12-13 22:07] LABS: BASO % 0.7 % (0-2.0); EOS % 1.5 % (0-4.5); HEMATOCRIT 38.1 % (32.4-45.2); HEMOGLOBIN 12.9 GM/dL (10.7-15.3); LYMPH % 20.2 % (8-40); MCH 30.6 pg (25.7-33.7); MCHC 33.8 g/dl (32.0-36.0); MEAN CELL VOLUME 90.5 fl (80-96); MEAN PLT VOLUME 9.7 fl (7.5-11.1); MONO % 5.4 % (3.8-10.2); NEUT % 72.2 % (42.8-82.8); PLATELET COUNT 276 10^3/uL (134-434); RBC 4.21 M/mm3 (3.60-5.2); RDW 12.6 % (11.6-15.6)
[2022-12-13 22:19] LABS: ACTIVATED PTT 26.1 SECONDS (25.2-36.5)
[2022-12-13 22:22] LABS: CHLORIDE 111 mmol/L (98-107); POTASSIUM 4.2 mmol/L (3.5-5.1); SODIUM 142 mmol/L (136-145)
[2022-12-13 22:25] LABS: BLOOD UREA NITROGEN 10.5 mg/dL (7-18); CALCIUM 8.4 mg/dL (8.5-10.1)
[2022-12-13 22:26] LABS: ANION GAP 6 MMOL/L (8-16); CO2 25 mmol/L (21-32); GLUCOSE,RANDOM 126 mg/dL (74-106)
[2022-12-13 22:29] LABS: CREATININE 0.8 mg/dL (0.55-1.3); SGPT/ALT 29 U/L (13-61)
[2022-12-13 22:31] LABS: ALK PHOS 75 U/L (45-117); BILIRUBIN,TOTAL 0.2 mg/dL (0.2-1); TOT PROT 6.7 g/dl (6.4-8.2)
[2022-12-13 22:39] LABS: SGOT/AST 17 U/L (15-37)
[2022-12-13 22:57] LABS: EPI CELLS 6 /uL (0-25.1); HYALINE CASTS 0 /uL (0-3.1); URINE APPEARANCE CLEAR; URINE BACTERIA 4857 /uL (0-1359); URINE BILIRUBIN NEGATIVE (NEGATIVE); URINE COLOR YELLOW; URINE GLUCOSE (UA) NEGATIVE (NEGATIVE); URINE KETONE TRACE (NEGATIVE); URINE LEUK ESTERASE 1+ (NEGATIVE); URINE NITRITE NEGATIVE (NEGATIVE); URINE PROTEIN NEGATIVE (NEGATIVE); URINE RBC 2070 /uL (0-23.9); URINE UROBILINOGEN 0.2 mg/dL (0.2-1.0); URINE WBC 145 /uL (0-25.8)
[2022-12-13 23:00] LABS: INR 0.94 (0.83-1.09); PROTHROMBIN TIME (PATIENT) 10.9 SEC (9.7-13.0)
[2022-12-13] MEDS ORDERED: KETOROLAC TROMETHAMINE 30 MG/1 ML VIAL IM ONE (23:56)
[2022-12-13] MEDS ORDERED: KETOROLAC TROMETHAMINE 30 MG/1 ML VIAL ONE (23:59)
[2022-12-14 00:42] VITALS: BP 113/69; PULSE 75
== END 2022-12-14 00:51 | disposition home or self-care (01) ==
LOC: JER 21:01
PROC: 3E033NZ Introduction of Analgesics, Hypnotics, Sedatives into Peripheral Vein, Percutaneous Approach (ICD-10-PCS; principal; 2022-12-13)
PROC: 3E033GC Introduction of Other Therapeutic Substance into Peripheral Vein, Percutaneous Approach (ICD-10-PCS; 2022-12-13)
PROC: 3E0337Z Introduction of Electrolytic and Water Balance Substance into Peripheral Vein, Percutaneous Approach (ICD-10-PCS; 2022-12-13)
PROC: 3E0233Z Introduction of Anti-inflammatory into Muscle, Percutaneous Approach (ICD-10-PCS; 2022-12-14)
DX: R51.9 Headache, unspecified (principal); R09.89 Other specified symptoms and signs involving the circulatory and respiratory systems; H53.8 Other visual disturbances
CPT/HCPCS: 36415; 70450-TC; 71046-TC-FY; 80053; 81003; 82550; 84484; 84702; 84703; 85025; 85610; 85730; 86850; 86900; 86901; 87086; 87186; 93005; 93010; 99285-25

== ENCOUNTER 2023-04-14 19:28 | Emergency (ER) | payer OTHER ==
[2023-04-14 19:32] VITALS: RESP 18; BMI 33.6
[2023-04-14] MEDS ORDERED: SODIUM CHLORIDE 0.9% 500 ML INFUS.BAG IV ONE (20:28)
[2023-04-14] MEDS ORDERED: ACETAMINOPHEN 1000 MG/100 ML BAG IVPB ONE (20:28)
[2023-04-14] MEDS ORDERED: ACETAMINOPHEN INJECTION 100 ML IVPB ONE (21:11)
[2023-04-14 21:16] LABS: BASO % 0.5 % (0-2.0); EOS % 1.6 % (0-4.5); HEMATOCRIT 40.9 % (32.4-45.2); HEMOGLOBIN 13.6 GM/dL (10.7-15.3); LYMPH % 26.8 % (8-40); MCH 30.4 pg (25.7-33.7); MCHC 33.3 g/dl (32.0-36.0); MEAN CELL VOLUME 91.5 fl (80-96); MEAN PLT VOLUME 10.2 fl (7.5-11.1); MONO % 5.9 % (3.8-10.2); NEUT % 65.2 % (42.8-82.8); PLATELET COUNT 230 10^3/uL (134-434); RBC 4.47 M/mm3 (3.60-5.2); RDW 13.9 % (11.6-15.6); WHITE BLOOD COUNT 8.2 K/mm3 (4.0-10.0)
[2023-04-14 21:36] LABS: EPI CELLS 22 /uL (0-25.1); HYALINE CASTS 1 /uL (0-3.1); URINE APPEARANCE CLEAR; URINE BACTERIA 1119 /uL (0-1359); URINE BILIRUBIN NEGATIVE (NEGATIVE); URINE COLOR YELLOW; URINE GLUCOSE (UA) NEGATIVE (NEGATIVE); URINE KETONE NEGATIVE (NEGATIVE); URINE LEUK ESTERASE 2+ (NEGATIVE); URINE NITRITE NEGATIVE (NEGATIVE); URINE PROTEIN NEGATIVE (NEGATIVE); URINE RBC 15 /uL (0-23.9); URINE UROBILINOGEN 0.2 mg/dL (0.2-1.0); URINE WBC 304 /uL (0-25.8)
[2023-04-14] MEDS ORDERED: SULFAMETHOXAZOLE/TRIMETHOPRIM 800MG/160MG D.S. TABLET PO ONE (21:47)
[2023-04-14] MEDS ORDERED: SULFAMETHOXAZOLE/TRIMETHOPRIM 800MG/160MG D.S. TABLET ONE (22:00)
[2023-04-14 22:38] LABS: POTASSIUM 4.1 mmol/L (3.5-5.1)
[2023-04-14 22:40] LABS: BLOOD UREA NITROGEN 8.3 mg/dL (7-18)
[2023-04-14 22:43] LABS: CREATININE 0.7 mg/dL (0.55-1.3)
[2023-04-14 22:45] LABS: BILIRUBIN,TOTAL 0.3 mg/dL (0.2-1); TOT PROT 6.7 g/dl (6.4-8.2)
[2023-04-14 22:50] LABS: CALCIUM 8.5 mg/dL (8.5-10.1)
[2023-04-14 23:18] LABS: HCG,QUALITATIVE URINE Negative
[2023-04-14 23:34] VITALS: BP 128/87; PULSE 92; TEMP 98.3
== END 2023-04-14 23:36 | disposition home or self-care (01) ==
LOC: JER 19:28
PROC: 3E033NZ Introduction of Analgesics, Hypnotics, Sedatives into Peripheral Vein, Percutaneous Approach (ICD-10-PCS; principal; 2023-04-14)
DX: N30.00 Acute cystitis without hematuria (principal); R07.9 Chest pain, unspecified; R05.9 Cough, unspecified; H92.01 Otalgia, right ear; R30.0 Dysuria; R07.0 Pain in throat; Z20.822 Contact with and (suspected) exposure to COVID-19
CPT/HCPCS: 0241U-QW; 36415; 80053; 81003; 83690; 84484; 84703; 85025; 87086; 87186; 87651; 93005; 93010; 99284-25

== ENCOUNTER 2023-07-08 13:58 | Emergency (ER) | payer OTHER ==
[2023-07-08 14:12] VITALS: BP 129/78; PULSE 79; RESP 18; TEMP 98.3; BMI 34.1
[2023-07-08] MEDS ORDERED: AMOX TR/POT CLAV 875MG/125MG TABLETS (FP) ONE (16:43)
[2023-07-08] MEDS ORDERED: IBUPROFEN 600 MG TABLET (FP) PO ONE (16:43)
[2023-07-08] MEDS: IBUPROFEN 600 MG TABLET (FP) PO ONE (16:45)
[2023-07-08] MEDS: AMOX TR/POT CLAV 875MG/125MG TABLETS (FP) PO ONE (16:45)
== END 2023-07-08 16:58 | disposition home or self-care (01) ==
LOC: JERFT 13:58
DX: K03.81 Cracked tooth (principal); K08.89 Other specified disorders of teeth and supporting structures; R51.9 Headache, unspecified; M79.10 Myalgia, unspecified site
CPT/HCPCS: 93005; 93010; 99283-25

== ENCOUNTER 2023-08-26 18:54 | Emergency (ER) | payer OTHER ==
[2023-08-26 18:59] VITALS: BP 146/95; PULSE 91; RESP 18; TEMP 98; BMI 72.5
[2023-08-26] MEDS ORDERED: KETOROLAC TROMETHAMINE 30 MG/1 ML VIAL ONE (20:10)
[2023-08-26] MEDS ORDERED: CLINDAMYCIN HCL 150 MG CAPSULE (FP) ONE ×2 (20:11→20:57)
[2023-08-26] MEDS: KETOROLAC TROMETHAMINE 30 MG/1 ML VIAL IM ONE (20:16)
[2023-08-26] MEDS: CLINDAMYCIN HCL 150 MG CAPSULE (FP) PO ONE ×2 (20:16→20:58)
[2023-08-26] MEDS: ONDANSETRON *ODT* 4 MG TABLET SL ONE (20:38)
[2023-08-26] MEDS ORDERED: ONDANSETRON *ODT* 4 MG TABLET ONE (20:38)
== END 2023-08-26 21:52 | disposition home or self-care (01) ==
LOC: JERFT 18:54 → JER 18:54 → JERFT 21:52
PROC: 2W3FX1Z Immobilization of Left Hand using Splint (ICD-10-PCS; principal; 2023-08-26)
DX: H60.12 Cellulitis of left external ear (principal); K08.89 Other specified disorders of teeth and supporting structures; H92.02 Otalgia, left ear; R20.2 Paresthesia of skin
CPT/HCPCS: 99284-25; Q0162

== ENCOUNTER 2023-09-15 21:05 | Emergency (ER) | payer OTHER ==
[2023-09-15 21:11] VITALS: PULSE 92; RESP 20; TEMP 99.1; BMI 32.8
[2023-09-15 22:38] LABS: EPI CELLS 9 /uL (0-25.1); HYALINE CASTS 1 /uL (0-3.1); URINE APPEARANCE CLOUDY; URINE BACTERIA >9,000 /uL (0-1359); URINE BILIRUBIN NEGATIVE (NEGATIVE); URINE COLOR YELLOW; URINE GLUCOSE (UA) NEGATIVE (NEGATIVE); URINE KETONE NEGATIVE (NEGATIVE); URINE LEUK ESTERASE 1+ (NEGATIVE); URINE NITRITE POSITIVE (NEGATIVE); URINE PROTEIN NEGATIVE (NEGATIVE); URINE RBC 62 /uL (0-23.9); URINE UROBILINOGEN 0.2 mg/dL (0.2-1.0); URINE WBC 123 /uL (0-25.8)
[2023-09-15 22:41] LABS: INR 0.98 (0.83-1.09); PROTHROMBIN TIME (PATIENT) 11.1 SEC (9.7-13.0)
[2023-09-15 22:42] LABS: BASO % 0.4 % (0-2.0); EOS % 0.8 % (0-4.5); HEMATOCRIT 37.7 % (32.4-45.2); HEMOGLOBIN 12.8 GM/dL (10.7-15.3); LYMPH % 16.8 % (8-40); MCH 31.8 pg (25.7-33.7); MEAN CELL VOLUME 93.3 fl (80-96); MEAN PLT VOLUME 9.6 fl (7.5-11.1); MONO % 7.4 % (3.8-10.2); NEUT % 74.6 % (42.8-82.8); PLATELET COUNT 267 10^3/uL (134-434); RBC 4.04 M/mm3 (3.60-5.2); RDW 12.9 % (11.6-15.6); WHITE BLOOD COUNT 9.4 K/mm3 (4.0-10.0)
[2023-09-15 22:44] LABS: POTASSIUM 4.4 mmol/L (3.5-5.1)
[2023-09-15 22:47] LABS: ALBUMIN 2.9 g/dl (3.4-5.0)
[2023-09-15 22:48] LABS: BLOOD UREA NITROGEN 10.4 mg/dL (7-18); CALCIUM 8.5 mg/dL (8.5-10.1); MAGNESIUM 1.8 mg/dL (1.8-2.4)
[2023-09-15 22:50] LABS: CREATININE 0.8 mg/dL (0.55-1.3)
[2023-09-15 22:51] LABS: BILIRUBIN,TOTAL 0.5 mg/dL (0.2-1); TOT PROT 7.1 g/dl (6.4-8.2)
[2023-09-15] MEDS ORDERED: ACETAMINOPHEN INJECTION 100 ML IVPB ONE (22:53)
[2023-09-15] MEDS ORDERED: CEFTRIAXONE 1 GM/50 ML BAG ONE (22:53)
[2023-09-15] MEDS: CEFTRIAXONE 1,000 MG in DEXTROSE 5%-WATER - 50 ML IVPB ONE (22:57)
[2023-09-15] MEDS: ACETAMINOPHEN 1000 MG/100 ML BAG IVPB ONE (22:57)
[2023-09-16] MEDS: LACTATED RINGERS SOLUTION 1000 ML INFUS.BAG IV ONE (00:15)
[2023-09-16 01:41] VITALS: BP 110/73
== END 2023-09-16 01:42 | disposition home or self-care (01) ==
LOC: JER 21:05
PROC: 3E03329 Introduction of Other Anti-infective into Peripheral Vein, Percutaneous Approach (ICD-10-PCS; principal; 2023-09-15)
PROC: 3E033NZ Introduction of Analgesics, Hypnotics, Sedatives into Peripheral Vein, Percutaneous Approach (ICD-10-PCS; 2023-09-15)
DX: R19.7 Diarrhea, unspecified (principal); R52 Pain, unspecified; M79.604 Pain in right leg; R07.9 Chest pain, unspecified; N39.0 Urinary tract infection, site not specified; Z20.822 Contact with and (suspected) exposure to COVID-19
CPT/HCPCS: 0241U-QW; 36415; 71045-TC-FY; 71275-TC; 80053; 81003; 83690; 83735; 83880; 84484; 84703; 85025; 85610; 85730; 86850; 86900; 86901; 87086; 87186; 93005; 93010; 93971-TC; 99285-25; J0131

== ENCOUNTER 2023-12-18 16:56 | Emergency (ER) | payer OTHER ==
[2023-12-18 17:05] VITALS: BMI 31.9
[2023-12-18] MEDS ORDERED: ACETAMINOPHEN INJECTION 100 ML IVPB ONE (19:05)
[2023-12-18] MEDS ORDERED: METOCLOPRAMIDE HCL INJECTION 10 MG/2 ML VIAL ONE (19:05)
[2023-12-18 19:26] LABS: EOS % 1.5 % (0-4.5); HEMATOCRIT 36.1 % (32.4-45.2); HEMOGLOBIN 12.2 GM/dL (10.7-15.3); LYMPH % 26.5 % (8-40); MCH 31.8 pg (25.7-33.7); MCHC 33.8 g/dl (32.0-36.0); MEAN CELL VOLUME 93.9 fl (80-96); MEAN PLT VOLUME 10.1 fl (7.5-11.1); MONO % 7.9 % (3.8-10.2); NEUT % 63.1 % (42.8-82.8); PLATELET COUNT 234 10^3/uL (134-434); RBC 3.84 M/mm3 (3.60-5.2); RDW 13.3 % (11.6-15.6)
[2023-12-18] MEDS: SODIUM CHLORIDE 0.9% 500 ML INFUS.BAG IV ONE (19:38)
[2023-12-18] MEDS: ACETAMINOPHEN 1000 MG/100 ML BAG IVPB ONE (19:38)
[2023-12-18] MEDS: METOCLOPRAMIDE HCL INJECTION 10 MG/2 ML VIAL IVPB ONE (19:39)
[2023-12-18 20:17] LABS: CALCIUM 8.3 mg/dL (8.5-10.1)
[2023-12-18 20:18] LABS: ALBUMIN 3.1 g/dl (3.4-5.0); BLOOD UREA NITROGEN 9.2 mg/dL (7-18)
[2023-12-18 20:22] LABS: BILIRUBIN,TOTAL 0.4 mg/dL (0.2-1); CREATININE 0.7 mg/dL (0.55-1.3)
[2023-12-18 20:24] LABS: TOT PROT 6.4 g/dl (6.4-8.2)
[2023-12-18 20:30] LABS: HIV INTERPRETATION NEGATIVE (NEGATIVE)
[2023-12-18] MEDS ORDERED: metroNIDAZOLE 250 MG TABLET ONE (21:06)
[2023-12-18] MEDS: metroNIDAZOLE 250 MG TABLET PO ONE (21:17)
[2023-12-18] MEDS ORDERED: KETOROLAC TROMETHAMINE 15 MG/ML VIAL ONE (23:44)
[2023-12-18] MEDS ORDERED: AMOX TR/POT CLAV 875MG/125MG TABLETS (FP) ONE (23:44)
[2023-12-18] MEDS: AMOX TR/POT CLAV 875MG/125MG TABLETS (FP) PO ONE (23:49)
[2023-12-18] MEDS: KETOROLAC TROMETHAMINE 15 MG/ML VIAL IVPUSH ONE (23:49)
[2023-12-19 01:31] VITALS: BP 105/59; PULSE 70; RESP 13; TEMP 98.4
== END 2023-12-19 01:44 | disposition home or self-care (01) ==
LOC: JER 16:56
PROC: 3E033NZ Introduction of Analgesics, Hypnotics, Sedatives into Peripheral Vein, Percutaneous Approach (ICD-10-PCS; principal; 2023-12-18)
PROC: 3E0333Z Introduction of Anti-inflammatory into Peripheral Vein, Percutaneous Approach (ICD-10-PCS; 2023-12-18)
PROC: 3E033NZ Introduction of Analgesics, Hypnotics, Sedatives into Peripheral Vein, Percutaneous Approach (ICD-10-PCS; 2023-12-18)
DX: R51.9 Headache, unspecified (principal); K12.2 Cellulitis and abscess of mouth; R11.2 Nausea with vomiting, unspecified; R19.7 Diarrhea, unspecified; R50.9 Fever, unspecified
CPT/HCPCS: 36415; 70450-TC; 70487-TC; 80053; 84703; 85025; 86803; 87389; 99285-25; J0131; Q9967

== ENCOUNTER 2024-11-14 22:02 | Emergency (ER) | payer OTHER ==
[2024-11-14 22:10] VITALS: BP 138/92; RESP 18; TEMP 98.2; BMI 35.2
[2024-11-14] MEDS ORDERED: LIDOCAINE HCL 1%, 10 MG/ML (20ML VIAL) ONE (22:56)
[2024-11-14] MEDS: LIDOCAINE HCL 1%, 10 MG/ML (50 mL VIAL) INF ONE (23:12)
[2024-11-15 00:02] VITALS: PULSE 88
== END 2024-11-15 00:03 | disposition home or self-care (01) ==
LOC: JER 22:02
DX: S69.91XA Unspecified injury of right wrist, hand and finger(s), initial encounter (principal); R00.0 Tachycardia, unspecified; W18.30XA Fall on same level, unspecified, initial encounter
CPT/HCPCS: 73130-TC-RT-FY; 99283-25